=== PATIENT | male | born 1960 | race Caucasian/White ===

== ENCOUNTER 2020-02-15 15:45 | Inpatient (IN) | payer BC ==
--- NOTE | 2020-02-15 16:12 | ED ---
Chest Pain HPI - General Chief Complaint: Chest Pain Stated Complaint: 30 day heart monitor sent pt to er irregular HR Time Seen by Provider: 02/15/20 15:55 Source: patient Mode of arrival: ambulatory Limitations: no limitations - History of Present Illness Initial Comments: 59-year-old male presents emergency department or palpitations. Patient reports that he went to his primary care office approximately one month ago for similar complaint and was diagnosed with A. fib. Patient followed up in Dr. Meyer office. He has been taking metoprolol and xarelto as directed without any missed doses. He is currently wearing a Holter monitor. He was working in the yard a lot today and felt palpitations. He went up to [employer] by something when he got a call from his vice president of instruction recommending that he going to the emergency room. Patient arrives and he is in A. fib. Denies chest pain. Admits to some shortness of breath. Did not take his blood thinner yet today. Denies cough or hemoptysis. No abdominal pain. No other alleviating, precipitating or modifying factors - Related Data Home Medications Medication Instructions Recorded Confirmed Rivaroxaban [Xarelto] 20 mg PO HS 02/15/20 02/15/20 Previous Rx's Medication Instructions Recorded Pantoprazole [Protonix] 40 mg PO AC-BRKFST #30 tablet. 02/16/20 Flecainide [Tambocor] 100 mg PO Q12HR #120 tab 02/18/20 Metoprolol Succinate (ER) [Toprol 50 mg PO DAILY #30 tab.er.24h 02/18/20 XL] Allergies Allergy/AdvReac Type Severity Reaction Status Date / Time No Known Allergies Allergy Verified 02/19/20 18:52 Review of Systems ROS Statement: Those systems with pertinent positive or pertinent negative responses have been documented in the HPI. ROS Other: All systems not noted in ROS Statement are negative. EKG Findings - EKG Comments: EKG Findings:: EKG demonstrates atrial fibrillation with a rapid ventricular response. Rate of 155. QRS 68. QTC of 433. Peak T waves in V2 and V3. No acute ST segment elevations. Repeat EKG at 1818 demonstrates a normal sinus rhythm with a ventricular rate of 86. DC interval 14. QRS 70. 94. T waves in V2 and V3. No acute ST segment elevation or depression Past Medical History Past Medical History: Atrial Fibrillation History of Any Multi-Drug Resistant Organisms: None Reported Past Surgical History: No Surgical Hx Reported Past Psychological History: No Psychological Hx Reported Smoking Status: Never smoker Past Alcohol Use History: Daily Past Drug Use History: None Reported General Exam Limitations: no limitations General appearance: alert, in no apparent distress Head exam: Present: atraumatic, normocephalic, normal inspection Eye exam: Present: normal appearance, PERRL, EOMI. Absent: scleral icterus, conjunctival injection, periorbital swelling ENT exam: Present: normal exam, mucous membranes moist Neck exam: Present: normal inspection. Absent: tenderness, meningismus, lymphadenopathy Respiratory exam: Present: normal lung sounds bilaterally. Absent: respiratory distress, wheezes, rales, rhonchi, stridor Cardiovascular Exam: Present: tachycardia, irregular rhythm. Absent: systolic murmur, diastolic murmur, rubs, gallop, clicks GI/Abdominal exam: Present: soft, normal bowel sounds. Absent: distended, ten derness, guarding, rebound, rigid Extremities exam: Present: normal inspection, full ROM, normal capillary refill. Absent: tenderness, pedal edema, joint swelling, calf tenderness Back exam: Present: normal inspection Neurological exam: Present: alert, oriented X3, CN II-XII intact Psychiatric exam: Present: normal affect, normal mood Skin exam: Present: warm, dry, intact, normal color. Absent: rash Course Vital Signs 02/15/20 02/15/20 02/15/20 15:54 16:30 16:45 Temperature 97.5 F L Pulse Rate 54 L 172 H 154 H Pulse Rate [ 152 H Collating Machine Operator ] Respiratory 20 20 20 Rate Blood Pressure 156/80 134/90 136/87 O2 Sat by Pulse 97 98 98 Oximetry 02/15/20 02/15/20 17:30 18:32 Temperature 98.1 F Pulse Rate 149 H 88 Pulse Rate [ Collating Machine Operator ] Respiratory 18 17 Rate Blood Pressure 134/96 126/86 O2 Sat by Pulse 98 99 Oximetry Chest Pain MDM - MDM Upon arrival patient was placed into trauma bay 4. Thorough history and physical exam was performed. Patient is placed on continuous pulse ox and cardiac monitoring. Patient has an irregular rhythm with a rapid heart rate in the 160s. Peripheral IV is established. Laboratory studies were conducted. She was given a gram of magnesium. Laboratory studies are reviewed. Repeat evaluation the patient demonstrates no improvement in his heart rate. Patient is started on a Cardizem drip. I recommended hospital admission for which the patient did agree to. Discussed the case with Dr. Zuñiga. Cardiology consultation. Prior to the patient being transported upstairs he does have notable cardioversion to a sinus rhythm. Repeat EKG was performed. Recommended continued treatment plan for which the patient agreed to. Patient was transfe rred to floor in stable condition Critical Care Time Critical Care Time: Yes Critical Care Time: 35 minutes Disposition Clinical Impression: Atrial fibrillation with RVR Disposition: ADMITTED IP TO THIS HOSP Condition: Good Is patient prescribed a controlled substance at d/c from ED?: No Decision to Admit Reason: Admit from EC Decision Date: 02/15/20 Decision Time: 16:57
[2020-02-15] MEDS ORDERED: MAGNESIUM SULFATE-D5W PMX 1 GM in DEXTROSE/WATER 1 100ML.BAG IVPB ONE (16:20)
[2020-02-15] MEDS ORDERED: DILTIAZEM DRIP BOLUS FROM BAG 1 MG SOLN IV ONE (16:57)
[2020-02-15] MEDS ORDERED: DILTIAZEM 125 MG in SODIUM CHLORIDE 0.9% 100 ML IV SCH (17:00)
[2020-02-15 17:03] LABS: Basophils # (A) 0.2 k/uL (0-0.2); Basophils % (A) 2 %; Eosinophils # (A) 0.1 k/uL (0-0.7); Eosinophils % (A) 1 %; HCT 48.7 % (39.0-53.0); HGB 16.5 gm/dL (13.0-17.5); Lymphocytes # (A) 2.2 k/uL (1.0-4.8); Lymphocytes % (A) 17 %; MCH 30.6 pg (25.0-35.0); MCHC 33.9 g/dL (31.0-37.0); MCV 90.3 fL (80.0-100.0); Mean Platelet Volume 7.1; Monocytes % (A) 8 %; Neutrophils # (A) 9.1 k/uL (1.3-7.7); Neutrophils % (A) 71 %; Platelet Count 378 k/uL (150-450); RDW 11.8 % (11.5-15.5); WBC 12.8 k/uL (3.8-10.6)
[2020-02-15 17:13] LABS: Partial Thromboplastin Time 27.4 sec (22.0-30.0); Prothrombin Time 10.2 sec (9.0-12.0)
[2020-02-15 17:17] LABS: ALT 23 U/L (4-49); AST 25 U/L (17-59); African American GFR (CKD) >90 (>60 ml/min/1.73 sqM); Albumin 4.3 g/dL (3.5-5.0); Alkaline Phosphatase 86 U/L (38-126); Anion Gap 8 mmol/L; Blood Urea Nitrogen 25 mg/dL (9-20); Calcium 9.6 mg/dL (8.4-10.2); Carbon Dioxide 28 mmol/L (22-30); Chloride 102 mmol/L (98-107); Glucose 130 mg/dL (74-99); Magnesium 1.9 mg/dL (1.6-2.3); Non-African American GFR(CKD) >90 (>60 ml/min/1.73 sqM); Potassium 4.4 mmol/L (3.5-5.1); Sodium 138 mmol/L (137-145); Total Bilirubin 0.8 mg/dL (0.2-1.3); Total Protein 7.4 g/dL (6.3-8.2)
--- NOTE | 2020-02-15 17:27 | XR ---
EXAMINATION TYPE: XR chest 2V DATE OF EXAM: 02/15/2020 COMPARISON: NONE HISTORY: Atrial fibrillation TECHNIQUE: 2 views FINDINGS: Heart and mediastinum are normal. Lungs are clear. Diaphragm is normal. Bony thorax appears intact. The pulmonary vascularity is normal. There is mild thoracic dextroscoliosis. IMPRESSION: No active cardiopulmonary disease.
[2020-02-15] MEDS ORDERED: NALOXONE 0.4 MG/ML 1 ML VIAL IV PRN (17:45)
[2020-02-15] MEDS: RIVAROXABAN 20 MG TAB PO SCH (21:46)
[2020-02-16 07:16] LABS: Basophils # (A) 0.1 k/uL (0-0.2); Basophils % (A) 0 %; Eosinophils # (A) 0.1 k/uL (0-0.7); Eosinophils % (A) 1 %; HGB 15.3 gm/dL (13.0-17.5); Lymphocytes # (A) 1.3 k/uL (1.0-4.8); Lymphocytes % (A) 9 %; MCH 30.3 pg (25.0-35.0); MCHC 33.2 g/dL (31.0-37.0); MCV 91.1 fL (80.0-100.0); Monocytes # (A) 1.2 k/uL (0-1.0); Monocytes % (A) 8 %; Neutrophils # (A) 11.5 k/uL (1.3-7.7); Neutrophils % (A) 80 %; Platelet Count 298 k/uL (150-450); RBC 5.05 m/uL (4.30-5.90); RDW 11.7 % (11.5-15.5); WBC 14.3 k/uL (3.8-10.6)
[2020-02-16 07:27] LABS: African American GFR (CKD) >90 (>60 ml/min/1.73 sqM); Anion Gap 4 mmol/L; Blood Urea Nitrogen 22 mg/dL (9-20); Calcium 8.6 mg/dL (8.4-10.2); Carbon Dioxide 27 mmol/L (22-30); Chloride 106 mmol/L (98-107); Glucose 123 mg/dL (74-99); Non-African American GFR(CKD) >90 (>60 ml/min/1.73 sqM); Potassium 4.2 mmol/L (3.5-5.1); Sodium 137 mmol/L (137-145)
[2020-02-16] MEDS: PANTOPRAZOLE 40 MG TABLET PO SCH (09:13)
[2020-02-16] MEDS: METOPROLOL TARTRATE 50 MG TAB PO SCH ×2 (09:13→19:12)
--- NOTE | 2020-02-16 09:13 | P.CRDCN ---
History of Present Illness Consult date: 02/16/20 Chief complaint: Heart racing History of present illness: This is a pleasant 59-year-old gentleman with prior diagnosis of paroxysmal atrial fibrillation was maintaining on metoprolol tartrate 25 mg by mouth twice a day along with oral anticoagulation with Xarelto was asked to come to the emergency department because his heart was "fast and out of rhythm". The patient was in his usual state of health until yesterday when he was doing some work at home and subsequently he was doing shopping in a store when he received a phone call from his information technology internship to come to the emergency department. He was wearing a monitor showing atrial fibrillation with rapid ventricular response. In terms of symptoms he was experiencing symptoms of heart racing and fluttering but no dizziness or lightheadedness or presyncope or syncope. No symptoms of ch est pain or chest discomfort. And no shortness of breath with exertion. He stated that he was taking all his medications including the metoprolol he was prescribed before. In the emergency department the patient was found to be in atrial fibrillation with RVR and subsequently he was started on Cardizem and drip and converted to normal sinus mechanism. He has been maintaining normal sinus mechanism and Cardizem drip at 5 mg per hour. I'm going to start the patient back on metoprolol into higher dose at 50 mg by mouth twice a day and continue oral anticoagulation. If he continues to maintain normal sinus mechanism he possibly can be discharged home in the next 12-24 hours. The patient does not have any history of coronary artery disease or congestive heart failure. No prior coronary revascularization. No diabetes or hypertension. Unfortunately he drinks alcohol and he drinks about 14 drinks a week. As a matter of fact the day before yesterday he did drink excessively. He is not quite sure if he does have sleep apnea and he was not told that he does snore during the night. No thyroid disorder. The TSH was checked and came in to be unremarkable. The rest of blood work overall came in to be unremarkable. The last time he drinks alcohol was 48 hours ago when he states he drinks shanti. Past Medical History Past Medical History: Atrial Fibrillation History of Any Multi-Drug Resistant Organisms: None Reported Past Surgical History: No Surgical Hx Reported Past Psychological History: No Psychological Hx Reported Smoking Status: Never smoker Past Alcohol Use History: Daily Past Drug Use History: None Reported Medications and Allergies Home Medications Medication Instructions Recorded Confirmed Type Rivaroxaban [Xarelto] 20 mg PO HS 02/15/20 02/15/20 History Metoprolol Tartrate [Lopressor] 50 mg PO BID #0 02/16/20 02/15/20 Rx Pantoprazole [Protonix] 40 mg PO AC-BRKFST #30 tablet. 02/16/20 Rx Allergies Allergy/AdvReac Type Severity Reaction Status Date / Time No Known Allergies Allergy Verified 02/15/20 18:31 Physical Exam Vitals: Vital Signs Temp Pulse Pulse Resp BP BP Pulse Ox 02/16/20 02:30 97.8 F 85 124/81 97 02/15/20 21:47 98.8 F 85 125/85 96 02/15/20 19:20 98.8 F 85 125/85 96 02/15/20 18:32 98.1 F 88 17 126/86 99 02/15/20 17:30 149 H 18 134/96 98 02/15/20 16:45 154 H 20 136/87 98 02/15/20 16:30 172 H 152 H 20 134/90 98 02/15/20 15:54 97.5 F L 54 L 20 156/80 97 Intake and Output 02/15/20 02/16/20 02/16/20 22:59 06:59 14:59 Intake Total 150 30 Output Total 400 0 Balance -250 30 Intake: Oral 150 30 Output: Urine 400 0 Other: # Voids 2 Weight 71.668 kg - Constitutional General appearance: no acute distress - Respiratory Respiratory: bilateral: CTA - Cardiovascular Rhythm: regular Heart sounds: normal: S1, S2 Results 02/16/20 07:02 02/16/20 07:02 Cardiac Enzymes 02/15/20 02/15/20 Range/Units 16:30 16:30 AST 25 (17-59) U/L Troponin I <0.012 (0.000-0.034) ng/mL Coagulation 02/15/20 Range/Units 16:30 PT 10.2 (9.0-12.0) sec APTT 27.4 (22.0-30.0) sec CBC 02/15/20 02/16/20 Range/Units 16:30 07:02 WBC 12.8 H 14.3 H (3.8-10.6) k/uL RBC 5.40 5.05 (4.30-5.90) m/uL Hgb 16.5 15.3 (13.0-17.5) gm/dL Hct 48.7 46.0 (39.0-53.0) % Plt Count 378 298 (150-450) k/uL Comprehensive Metabolic Panel 02/15/20 02/16/20 Range/Units 16:30 07:02 Sodium 138 137 (137-145) mmol/L Potassium 4.4 4.2 (3.5-5.1) mmol/L Chloride 102 106 (98-107) mmol/L Carbon Dioxide 28 27 (22-30) mmol/L BUN 25 H 22 H (9-20) mg/dL Creatinine 0.78 0.70 (0.66-1.25) mg/dL Glucose 130 H 123 H (74-99) mg/dL Calcium 9.6 8.6 (8.4-10.2) mg/dL AST 25 (17-59) U/L ALT 23 (4-49) U/L Alkaline Phosphatase 86 (38-126) U/L Total Protein 7.4 (6.3-8.2) g/dL Albumin 4.3 (3.5-5.0) g/dL Current Medications Generic Name Dose Route Start Last Admin Trade Name Freq PRN Reason Stop Dose Admin Diltiazem HCl 125 mg/ Sodium 125 mls @ 5 mls/hr 02/15/20 17:00 02/15/20 17:43 Chloride IV 5 mg/hr .Q24H EUGENIE 5 mls/hr Administration 5 MG/HR Metoprolol Tartrate 50 mg 02/16/20 21:00 Metoprolol Tartrate 50 Mg Tab PO BID EUGENIE Naloxone HCl 0.2 mg 02/15/20 17:45 Naloxone 0.4 Mg/Ml 1 Ml Vial IV Q2M PRN Opioid Reversal Pantoprazole Sodium 40 mg 02/16/20 09:00 Pantoprazole 40 Mg Tablet PO AC-BRKFST EUGENIE Rivaroxaban 20 mg 02/15/20 21:00 02/15/20 21:46 Rivaroxaban 20 Mg Tab PO 20 mg HS EUGENIE Administration Intake and Output 02/15/20 02/16/20 02/16/20 22:59 06:59 14:59 Intake Total 150 30 Output Total 400 0 Balance -250 30 Intake: Oral 150 30 Output: Urine 400 0 Other: # Voids 2 Weight 71.668 kg 02/16/20 07:02 02/16/20 07:02 Assessment and Plan Assessment: Assessment #1 atrial fibrillation with rapid ventricular response. The patient converted to normal sinus mechanism #2 history of paroxysmal atrial fibrillation #3 excessive alcohol use #4 possible sleep apnea #5 family history of coronary artery disease Plan #1 the patient has been maintaining normal sinus mechanism #2 I would restart him back on metoprolol at a higher dose at 50 mg twice a day #3 continue oral anticoagulation for at least 4-6 weeks #4 he was counseled regarding excessive alcohol with #5 status study as an outpatient #6 watch for symptoms of alcohol withdrawal while #7 rule out severe coronary artery disease probably as an outpatient #8 follow-up with the patient Thank you for allowing us participate in his care
--- NOTE | 2020-02-16 10:52 | P.HPIM ---
History of Present Illness H&P Date: 02/16/20 History of present illness This is a pleasant 59-year-old patient of Dr. Goins who presented to the emergency room after being called by his regasification plant operator due to A. fib with RVR. Patient's past medical history includes atrial fibrillation and EtOH dependence. Approximate one month ago patient went to see his doctor for his yearly checkup and was found to be in atrial fibrillation. He was started on Zaroxolyn sent to cardiology where he underwent a stress test echo and carotid ultrasound which were all within normal limits per the patient. Patient was then given a Holter monitor. Yesterday he was doing yard work and went to [employer] he was then called by the regasification plant operator to go to the ER because his heart rate was 160. Patient did state that she felt his heart fluttering and some shortness of breath however he thought that was more related to his activity. Patient denies smoking or recreational drugs however he does drink approximately 15 or more drinks per week. Currently patient has converted to normal sinus rhythm. He is not having any complaints or concerns at this time. He can is anxious to go home Review Of Systems: Constitutional: No fever, no chills, no night sweats. No weight change. No weakness, fatigue or lethargy. No daytime sleepiness. EENT: No headache. No blurred vision or double vision, no loss of vision. No loss of Hearing, no ringing in the ears, no dizziness. No nasal drainage or congestion. No epistaxis. No sore throat. Lungs: No shortness of breath, cough, no sputum production. No wheezing. Cardiovascular: No chest pain, no lower extremity edema. Reports palpitations resolved. No paroxysmal nocturnal dyspnea. No orthopnea. No lightheadedness or dizziness. No syncopal episodes. Abdominal: no abdominal discomfort. No nausea, vomiting. no diarrhea. No constipation. No bloody or tarry stools. no loss of appetite. Genitourinary: No dysuria, increased frequency, urgency. No urinary retention. Musculoskeletal: No myalgias. No muscle weakness, no gait dysfunction, no frequent falls. No back pain. No neck pain. Integumentary: No wounds, no lesions. No rash or pruritus. No unusual bruising. No change in hair or nails. Neurologic: No aphasia. No facial droop. No change in mentation. No head injury. No headache. No paralysis. No paresthesia. Psychiatric: No depression. No anxiety. No mood swings. Endocrine: No abnormal blood sugars. No weight change. No excessive sweating or thirst. Social history: EtOH consumption 15+ drinks per week, denies smoking denies recreational drugs including marijuana. Patient currently works as a distributor for snack foods. Family history: Patient is single with one daughter who is healthy, 4 brothers one from CAD 1 living with CAD, 2 other brothers are healthy. Mom at 36 due to EtOH, dad of obesity and EtOH at 56. Physical examination General Appearance: Alert, cooperative, no distress, appears stated age. Neck HEENT: Supple, no lymphadenopathy, no thyroid enlargement, no carotid bruits. Lungs: Clear to auscultation without crackles or wheezes no rhonchi, no deformity. Chest Wall: Chest wall normal expansion with deep inspiration no tenderness and no deformity was found on exam, no costochondral pain or discomfort. Heart: Regular rate and rhythm, S1, S2 normal, no murmur, rub or gallop. Back: Symmetric, no curvature, ROM normal, no CVA tenderness. Abdomen: Soft, non-tender, no rebound or rigidity, no hepatosplenomegaly. Extremities: Extremities normal, atraumatic, no cyanosis or edema. Pulses: 2+ and symmetric. Skin: Skin color, texture, tugor normal, no rashes or lesions. Neurologic: Alert oriented x3 cranial nerves II through XII intact, no motor deficit, no abnormal balance or gait Assessment and plan 1. Atrial fibrillation with RVR. Cardizem drip is DC'd. Metoprolol increased to 50 mg twice a day. Continue xarelto. Consult for cardiology. 2. Palpitations. As noted above 3. EtOH dependence, discussed with patient's EtOH consumption on heart muscle. 4. GI prophylaxis. Protonix 40 mg daily 5. DVT prophylaxis. xarelto Discharge plan: Discharge home today. Impression and plan of care have been directed as dictated by the signing physician. Danay Yap nurse practitioner acting as scribe for signing physician. Past Medical History Past Medical History: Atrial Fibrillation History of Any Multi-Drug Resistant Organisms: None Reported Past Surgical History: No Surgical Hx Reported Past Psychological History: No Psychological Hx Reported Smoking Status: Never smoker Past Alcohol Use History: Daily Past Drug Use History: None Reported Medications and Allergies Home Medications Medication Instructions Recorded Confirmed Type Rivaroxaban [Xarelto] 20 mg PO HS 02/15/20 02/15/20 History Metoprolol Tartrate [Lopressor] 50 mg PO BID #0 02/16/20 02/15/20 Rx Pantoprazole [Protonix] 40 mg PO RILEY-BRKFST #30 tablet. 02/16/20 Rx Allergies Allergy/AdvReac Type Severity Reaction Status Date / Time No Known Allergies Allergy Verified 02/15/20 18:31 Physical Exam Vitals: Vital Signs Temp Pulse Pulse Pulse Resp BP BP 02/16/20 09:00 80 14 02/16/20 08:39 98.0 F 80 14 117/69 02/16/20 02:30 97.8 F 85 124/81 02/15/20 21:47 98.8 F 85 125/85 02/15/20 19:20 98.8 F 85 125/85 02/15/20 18:32 98.1 F 88 17 126/86 02/15/20 17:30 149 H 18 134/96 02/15/20 16:45 154 H 20 136/87 02/15/20 16:30 172 H 152 H 20 134/90 02/15/20 15:54 97.5 F L 54 L 20 156/80 Pulse Ox 02/16/20 09:00 02/16/20 08:39 96 02/16/20 02:30 97 02/15/20 21:47 96 02/15/20 19:20 96 02/15/20 18:32 99 02/15/20 17:30 98 02/15/20 16:45 98 02/15/20 16:30 98 02/15/20 15:54 97 Intake and Output 02/15/20 02/16/20 02/16/20 22:59 06:59 14:59 Intake Total 150 30 300 Output Total 400 0 Balance -250 30 300 Intake: Oral 150 30 300 Output: Urine 400 0 Other: Voiding Method Toilet # Voids 2 Weight 71.668 kg Results CBC & Chem 7: 02/16/20 07:02 02/16/20 07:02 Labs: Abnormal Lab Results - Last 24 Hours (Table) 02/15/20 02/15/20 02/16/20 Range/Units 16:30 16:30 07:02 WBC 12.8 H 14.3 H (3.8-10.6) k/uL Neutrophils # 9.1 H 11.5 H (1.3-7.7) k/uL Monocytes # 1.2 H (0-1.0) k/uL BUN 25 H (9-20) mg/dL Glucose 130 H (74-99) mg/dL 02/16/20 Range/Units 07:02 WBC (3.8-10.6) k/uL Neutrophils # (1.3-7.7) k/uL Monocytes # (0-1.0) k/uL BUN 22 H (9-20) mg/dL Glucose 123 H (74-99) mg/dL Thrombosis Risk Factor Assmnt - Choose All That Apply Each Factor Represents 1 point: Age 41-60 years Thrombosis Risk Factor Assessment Total Risk Factor Score: 1 Thrombosis Risk Factor Assessment Level: Low Risk
--- NOTE | 2020-02-16 10:54 | P.DS ---
Providers Date of admission: 02/15/20 17:45 Attending physician: Darian Zuñiga Consults: 02/15/20 17:45 Consult Physician Urgent Consulting Provider: [facility] Consult Reason/Comments: afib with rvr Do you want consulting provider notified?: Yes Primary care physician: Shamir Goins [facility] Course: History of present illness This is a pleasant 59-year-old patient of Dr. Goins who presented to the emergency room after being called by his garnetter due to A. fib with RVR. Patient's past medical history includes atrial fibrillation and EtOH dependence. Approximate one month ago patient went to see his doctor for his yearly checkup and was found to be in atrial fibrillation. He was started on Zaroxolyn sent to cardiology where he underwent a stress test echo and carotid ultrasound which were all within normal limits per the patient. Patient was then given a Holter monitor. Yesterday he was doing yard work and went to [employer] he was then called by the garnetter to go to the ER because his heart rate was 160. Patient did state that she felt his heart fluttering and some shortness of breath however he thought that was more related to his activity. Patient denies smoking or recreational drugs however he does drink approximately 15 or more drinks per week. Currently patient has converted to normal sinus rhythm. He is not having any complaints or concerns at this time. He can is anxious to go home Discharge diagnoses: 1. Atrial fibrillation with RVR. 2. Palpitations. 3. EtOH dependence, Discharge disposition: Home with self-care Impression and plan of care have been directed as dictated by the signing physician. Danay Yap nurse practitioner acting as scribe for signing physician. Patient Condition at Discharge: Serious Plan - Discharge Summary New Discharge Prescriptions: New Pantoprazole [Protonix] 40 mg PO AC-BRKFST #30 tablet. Continue Rivaroxaban [Xarelto] 20 mg PO HS Changed Metoprolol Tartrate [Lopressor] 50 mg PO BID #0 Discharge Medication List Rivaroxaban [Xarelto] 20 mg PO HS 02/15/20 [History] Metoprolol Tartrate [Lopressor] 50 mg PO BID #0 02/16/20 [Rx] Pantoprazole [Protonix] 40 mg PO AC-BRKFST #30 tablet. 02/16/20 [Rx] Follow up Appointment(s)/Referral(s): Monico Beard MD [STAFF PHYSICIAN] - 1 Week Shamir Goins DO [Primary Care Provider] - 1-2 days
[2020-02-16] MEDS ORDERED: METOPROLOL TARTRATE 50 MG TAB PO SCH (21:00)
[2020-02-16] MEDS: RIVAROXABAN 20 MG TAB PO SCH (21:16)
[2020-02-17] MEDS: PANTOPRAZOLE 40 MG TABLET PO SCH (06:52)
[2020-02-17] MEDS: FLECAINIDE 50 MG TAB PO SCH ×2 (08:51→21:45)
[2020-02-17] MEDS: METOPROLOL SUCCINATE (ER) 50 MG TAB.ER.24H PO SCH (08:51)
[2020-02-17] MEDS ORDERED: METOPROLOL SUCCINATE (ER) 50 MG TAB.ER.24H PO SCH (09:00)
--- NOTE | 2020-02-17 09:40 | P.PN ---
Subjective This is a pleasant 59-year-old male past medical history significant for paroxysmal atrial fibrillation and daily alcohol intake. He follows with Dr. Christy for cardiology. He was sent to the hospital secondary to a-fib with RVR noted on an outpatient event monitor he was wearing. He did spontaneously convert back to sinus mechanism while on cardizem infusion yesterday. He continues to maintain NSR. He is seen and examined sitting up in the chair in no acute distress. He denies chest pain, shortness of breath, dizziness or palpitat ions. He states he underwent a stress test and echocardiogram 2- weeks ago at [facility] and was told both tests were normal. Blood pressure 108/73 heart rate 83 afebrile maintaining oxygen saturation on room air. GENERAL: Well-appearing, well-nourished and in no acute distress. NECK: Supple without JVD or thyromegaly. LUNGS: Breath sounds clear to auscultation bilaterally. Respiration equal and unlabored. No wheezes, rales or rhonchi. HEART: Regular rate and rhythm without murmurs, rubs or gallops. S1 and S2 heard. EXTREMITIES: Normal range of motion, no edema. No clubbing or cyanosis. Peripheral pulses intact. ASSESSMENT Atrial fibrillation with rapid ventricular rate, paroxysmal. Currently maintaining sinus mechanism. Leukocytosis Alcohol abuse PLAN Patient continues to maintain sinus mechanism. We recommend initiating flecainide 100 mg twice a day along with continuing Toprol 50 mg daily and Xarelto 20 mg daily. We discussed in great detail with the patient that we would like to monitor for an additional 24 hours given initiation of flecainide. He is in agreement of this plan. We will also get the records of his recent cardiac testing for review. Ongoing telemetry monitoring. Further recommendations to follow based upon clinical course. Nurse Practitioner note has been reviewed, I agree with a documented findings and plan of care. Patient was seen and examined. Objective - Vital Signs Vital signs: Vital Signs Temp 98.2 F 02/17/20 07:58 Pulse 83 02/17/20 07:58 Resp 16 02/17/20 07:58 BP 108/73 02/17/20 07:58 Pulse Ox 97 02/17/20 07:58 Intake & Output 02/16/20 02/17/20 02/17/20 18:59 06:59 18:59 Intake Total 800 700 Balance 800 700 Intake: Oral 800 700 Other: Voiding Method Toilet Toilet # Voids 2 1 - Labs CBC & Chem 7: 02/16/20 07:02 02/16/20 07:02
--- NOTE | 2020-02-17 13:31 | P.PN ---
Subjective Progress Note Date: 02/16/20 (Y) History of present illness This is a pleasant 59-year-old patient of Dr. Goins who presented to the emergency room after being called by his bulk pallet builder due to A. fib with RVR. Patient's past medical history includes atrial fibrillation and EtOH dependence. Approximate one month ago patient went to see his doctor for his yearly checkup and was found to be in atrial fibrillation. He was started on Zaroxolyn sent to cardiology where he underwent a stress test echo and carotid ultrasound which were all within normal limits per the patient. Patient was then given a Holter monitor. Yesterday he was doing yard work and went to [employer] he was then called by the bulk pallet builder to go to the ER because his heart rate was 160. Patient did state that she felt his heart fluttering and some shortness of breath however he thought that was more related to his activity. Patient denies smoking or recreational drugs however he does drink approximately 15 or more drinks per week. Currently patient has converted to normal sinus rhythm. He is not having any complaints or concerns at this time. He can is anxious to go home Patient was scheduled for discharge home yesterday once cleared by cardiology but Dr. Beard wanted to monitor overnight. Review Of Systems: Constitutional: No fever, no chills, no night sweats. No weight change. No weakness, fatigue or lethargy. No daytime sleepiness. EENT: No headache. No blurred vision or double vision, no loss of vision. No loss of Hearing, no ringing in the ears, no dizziness. No nasal drainage or congestion. No epistaxis. No sore throat. Lungs: No shortness of breath, cough, no sputum production. No wheezing. Cardiovascular: No chest pain, no lower extremity edema. Reports palpitations resolved. No paroxysmal nocturnal dyspnea. No orthopnea. No lightheadedness or dizziness. No syncopal episodes. Abdominal: no abdominal discomfort. No nausea, vomiting. no diarrhea. No constipation. No bloody or tarry stools. no loss of appetite. Genitourinary: No dysuria, increased frequency, urgency. No urinary retention. Musculoskeletal: No myalgias. No muscle weakness, no gait dysfunction, no frequent falls. No back pain. No neck pain. Integumentary: No wounds, no lesions. No rash or pruritus. No unusual bruising. No change in hair or nails. Neurologic: No aphasia. No facial droop. No change in mentation. No head injury. No headache. No paralysis. No paresthesia. Psychiatric: No depression. No anxiety. No mood swings. Endocrine: No abnormal blood sugars. No weight change. No excessive sweating or thirst. Physical examination General Appearance: Alert, cooperative, no distress, appears stated age. Neck HEENT: Supple, no lymphadenopathy, no thyroid enlargement, no carotid bruits. Lungs: Clear to auscultation without crackles or wheezes no rhonchi, no deformity. Chest Wall: Chest wall normal expansion with deep inspiration no tenderness and no deformity was found on exam, no costochondral pain or discomfort. Heart: Regular rate and rhythm, S1, S2 normal, no murmur, rub or gallop. Back: Symmetric, no curvature, ROM normal, no CVA tenderness. Abdomen: Soft, non-tender, no rebound or rigidity, no hepatosplenomegaly. Extremities: Extremities normal, atraumatic, no cyanosis or edema. Pulses: 2+ and symmetric. Skin: Skin color, texture, tugor normal, no rashes or lesions. Neurologic: Alert oriented x3 cranial nerves II through XII intact, no motor deficit, no abnormal balance or gait Assessment and plan 1. Atrial fibrillation with RVR. Cardizem drip is DC'd. Metoprolol increased to 50 mg twice a day. Continue xarelto. Consult for cardiology. 2. Palpitations. As noted above 3. EtOH dependence, discussed with patient's EtOH consumption on heart muscle. 4. GI prophylaxis. Protonix 40 mg daily 5. DVT prophylaxis. xarelto Discharge plan:home Impression and plan of care have been directed as dictated by the signing physician. Pattie Wood nurse practitioner acting as scribe for signing physician. Objective - Vital Signs Vital signs: Vital Signs Temp 97.7 F 02/17/20 02:25 Pulse 62 02/17/20 02:25 Resp 16 02/16/20 14:43 BP 104/66 02/17/20 02:25 Pulse Ox 96 02/17/20 02:25 Intake & Output 02/16/20 02/17/20 02/17/20 18:59 06:59 18:59 Intake Total 800 700 Balance 800 700 Intake: Oral 800 700 Other: Voiding Method Toilet Toilet # Voids 2 1 - Labs CBC & Chem 7: 02/16/20 07:02 02/16/20 07:02
--- NOTE | 2020-02-17 13:35 | P.PN ---
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 fib with RVR. Patient's past medical history includes atrial fibrillation and EtOH dependence. Approximate one month ago patient went to see his doctor for his yearly checkup and was found to be in atrial fibrillation. He was started on Zaroxolyn sent to cardiology where he underwent a stress test echo and carotid ultrasound which w ere all within normal limits per the patient. Patient was then given a Holter monitor. Yesterday he was doing yard work and went to [employer] he was then called by the claims consultant to go to the ER because his heart rate was 160. Patient did state that she felt his heart fluttering and some shortness of breath however he thought that was more related to his activity. Patient denies smoking or recreational drugs however he does drink approximately 15 or more drinks per week. Currently patient has converted to normal sinus rhythm. He is not having any complaints or concerns at this time. He can is anxious to go home Patient was scheduled for discharge home once cleared by cardiology but Dr. Beard wanted to monitor overnight. 02/16: Dr. Beard requested that the patient be held overnight. Patient states that last evening when he thought his metoprolol was wearing off. Was feeling palpitations of his heart rate increased. Patient has been seen by Dr. Quinones this morning and flecainide has been added to his medications and he will be monitored overnight. Also changed Lopressor to metoprolol XL 50 mg daily. Patient has been afebrile, heart rate 83, blood pressure 108/73, pulse ox 97% on room air. Review Of Systems: Constitutional: No fever, no chills, no night sweats. No weight change. No weakness, fatigue or lethargy. No daytime sleepiness. EENT: No headache. No blurred vision or double vision, no loss of vision. No loss of Hearing, no ringing in the ears, no dizziness. No nasal drainage or congestion. No epistaxis. No sore throat. Lungs: No shortness of breath, cough, no sputum production. No wheezing. Cardiovascular: No chest pain, no lower extremity edema. Reports palpitations episode last evening. No paroxysmal nocturnal dyspnea. No orthopnea. No l ightheadedness or dizziness. No syncopal episodes. Abdominal: no abdominal discomfort. No nausea, vomiting. no diarrhea. No constipation. No bloody or tarry stools. no loss of appetite. Genitourinary: No dysuria, increased frequency, urgency. No urinary retention. Musculoskeletal: No myalgias. No muscle weakness, no gait dysfunction, no frequent falls. No back pain. No neck pain. Integumentary: No wounds, no lesions. No rash or pruritus. No unusual bruising. No change in hair or nails. Neurologic: No aphasia. No facial droop. No change in mentation. No head injury. No headache. No paralysis. No paresthesia. Psychiatric: No depression. No anxiety. No mood swings. Endocrine: No abnormal blood sugars. No weight change. No excessive sweating or thirst. Physical examination General Appearance: This is a 59-year-old male. He is sitting up in a chair and appears to be in no acute distress. Alert, cooperative, no distress, appears stated age. Neck HEENT: Supple, no lymphadenopathy, no thyroid enlargement, no carotid bruits. Lungs: Clear to auscultation without crackles or wheezes no rhonchi, no deformity. Chest Wall: Chest wall normal expansion with deep inspiration no tenderness and no deformity was found on exam, no costochondral pain or discomfort. Heart: Regular rate and rhythm, S1, S2 normal, no murmur, rub or gallop. Back: Symmetric, no curvature, ROM normal, no CVA tenderness. Abdomen: Soft, non-tender, no rebound or rigidity, no hepatosplenomegaly. Extremities: Extremities normal, atraumatic, no cyanosis or edema. Pulses: 2+ and symmetric. Skin: Skin color, texture, tugor normal, no rashes or lesions. Neurologic: Alert oriented x3 cranial nerves II through XII intact, no motor deficit, no abnormal balance or gait Assessment and plan 1. Atrial fibrillation with RVR, paroxysmal atrial fibrillation. Currently in sinus rhythm. Cardizem drip is DC'd. Metoprolol XL 50 mg daily, flecainide added today. Continue xarelto. Consult for cardiology appreciated. 2. Palpitations. As noted above 3. EtOH dependence, discussed with patient's EtOH consumption on heart muscle. 4. GI prophylaxis. Protonix 40 mg daily 5. DVT prophylaxis. xarelto Discharge plan:home Impression and plan of care have been directed as dictated by the signing physician. Pattie Wood nurse practitioner acting as scribe for signing physician. Objective - Vital Signs Vital signs: Vital Signs Temp 98.2 F 02/17/20 07:58 Pulse 83 02/17/20 07:58 Resp 16 02/17/20 09:00 BP 108/73 02/17/20 07:58 Pulse Ox 97 02/17/20 07:58 Intake & Output 02/16/20 02/17/20 02/17/20 18:59 06:59 18:59 Intake Total 800 700 200 Balance 800 700 200 Intake: Oral 800 700 200 Other: Voiding Method Toilet Toilet Toilet # Voids 2 1 - Labs CBC & Chem 7: 02/16/20 07:02 02/16/20 07:02
[2020-02-17] MEDS: RIVAROXABAN 20 MG TAB PO SCH (21:45)
[2020-02-18] MEDS: PANTOPRAZOLE 40 MG TABLET PO SCH (06:39)
--- NOTE | 2020-02-18 08:27 | P.DS ---
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 fib with RVR. Patient's past medical history includes atrial fibrillation and EtOH dependence. Approximate one month ago patient went to see his doctor for his yearly checkup and was found to be in atrial fibrillation. He was started on Zaroxolyn sent to cardiology where he underwent a stress test echo and carotid ultrasound which were all within normal limits per the patient. Patient was then given a Holter monitor. Yesterday he was doing yard work and went to [employer] he was then called by the architectural project manager to go to the ER because his heart rate was 160. Patient did state that she felt his heart fluttering and some shortness of breath however he thought that was more related to his activity. Patient denies smoking or recreational drugs however he does drink approximately 15 or more drinks per week. Currently patient has converted to normal sinus rhythm. He is not having any complaints or concerns at this time. He can is anxious to go home Patient was scheduled for discharge home once cleared by cardiology but Dr. Beard wanted to monitor overnight. 02/16: Dr. Beard requested that the patient be held overnight. Patient states that last evening when he thought his metoprolol was wearing off. Was feeling palpitations of his heart rate increased. Patient has been seen by Dr. Quinones this morning and flecainide has been added to his medications and he will be monitored overnight. Also changed Lopressor to metoprolol XL 50 mg daily. Patient has been afebrile, heart rate 83, blood pressure 108/73, pulse ox 97% on room air. 02/17: Patient remains in sinus rhythm and denies any issues over night. He has been cleared for discharge by cardiology. HR 50s, BP 122/82, PO 95% on RA. Patient will be discharged home today in stable condition. Discharge diagnoses: 1. Atrial fibrillation with RVR, paroxysmal atrial fibrillation. Currently in sinus rhythm. 2. Palpitations. 3. EtOH dependence, discussed with patient's EtOH consumption on heart muscle. Discharge plan:home Impression and plan of care have been directed as dictated by the signing physician. Pattie Wood nurse practitioner acting as scribe for signing physician. Patient Condition at Discharge: Good Plan - Discharge Summary New Discharge Prescriptions: New Pantoprazole [Protonix] 40 mg PO AC-BRKFST #30 tablet. Flecainide [Tambocor] 100 mg PO Q12HR #120 tab Metoprolol Succinate (ER) [Toprol XL] 50 mg PO DAILY #30 tab.er.24h Continue Rivaroxaban [Xarelto] 20 mg PO HS Discontinued Metoprolol Tartrate [Lopressor] 25 mg PO BID Discharge Medication List Rivaroxaban [Xarelto] 20 mg PO HS 02/15/20 [History] Pantoprazole [Protonix] 40 mg PO AC-BRKFST #30 tablet. 02/16/20 [Rx] Flecainide [Tambocor] 100 mg PO Q12HR #120 tab 02/18/20 [Rx] Metoprolol Succinate (ER) [Toprol XL] 50 mg PO DAILY #30 tab.er.24h 02/18/20 [Rx] Follow up Appointment(s)/Referral(s): Monico Beard MD [STAFF PHYSICIAN] - 1 Week (The office will call you with appointment date and time) Shamir Goins DO [Primary Care Provider] - 1 Week Discharge Disposition: HOME SELF-CARE
[2020-02-18 08:49] VITALS: BP 122/82; PULSE 96; RESP 16; TEMP 98.2
[2020-02-18] MEDS: FLECAINIDE 50 MG TAB PO SCH (08:53)
[2020-02-18] MEDS: METOPROLOL SUCCINATE (ER) 50 MG TAB.ER.24H PO SCH (08:53)
--- NOTE | 2020-02-18 11:25 | P.PN ---
Subjective Progress Note Date: 02/18/20 This is a 59-year-old gentleman with history of EtOH use, patient states that he drank at least 14 alcoholic beverages per week, patient was recently diagnosed with atrial fibrillation, he was wearing an event monitor and was instructed to come to the hospital. Patient had been initiated on Xarelto, he presented to the hospital on this admission with symptoms of heart racing. He was found to be in atrial fibrillation with a rapid ventricular response. Patient also recently underwent an echocardiogram with Doppler study and a Lexiscan stress test at [facility] [place]. I did review those this morning, the Imani scan was negative for any reversible ischemia. The patient was seen in consultation yesterday, and initiated on flecainide, he remains this morning in a normal sinus rhythm. He denies any palpitations, no chest discomfort, no breathing difficulty. Blood pressure 122/80, heart rate in the 60s this morning. 95% on room air. White blood cell count 14.3, hemoglobin 15.3, platelet count 298. Sodium 137, potassium 4.2, BUN 22, creatinine 0.7. Objective - Vital Signs Vital signs: Vital Signs Temp 98.2 F 02/18/20 08:49 Pulse 96 02/18/20 08:49 Resp 16 02/18/20 08:49 BP 122/82 02/18/20 08:49 Pulse Ox 95 02/18/20 08:49 Intake & Output 02/17/20 02/18/20 02/18/20 18:59 06:59 18:59 Intake Total 200 200 Balance 200 200 Intake: Oral 200 200 Other: Voiding Method Toilet Toilet # Voids 1 1 - Exam PHYSICAL EXAMINATION: GENERAL: 89-year-old gentleman in no acute distress at the time of my examination HEENT: Head is atraumatic, normocephalic. Pupils equal, round. Sclera anicteric. Conjunctiva are clear. Mucous membranes of the mouth are moist. Neck is supple. There is no elevated jugular venous pressure. No carotid bruit is heard. HEART EXAMINATION: Heart S1, S2 normal. No murmur or gallop heard. CHEST EXAMINATION: Lungs are clear to auscultation and precussion. No chest wall tenderness is noted on palpation or with deep breathing. ABDOMEN: Soft, nontender. Bowel sounds are heard. No organomegaly noted. EXTREMITIES: 2+ peripheral pulses with no evidence of peripheral edema and no calf tenderness noted. NEUROLOGIC patient is awake, alert and oriented 3 . - Labs CBC & Chem 7: 02/16/20 07:02 02/16/20 07:02 Assessment and Plan Plan: Assessment and plan #1 atrial fibrillation with rapid ventricular response, paroxysmal, remaining in normal sinus rhythm on flecainide and beta alin #2 alcohol abuse Plan From cardiology's perspective, patient may be able to be discharged home today. He wishes to follow-up in our office, we'll make an appointment for him to see Dr. Dudley in the office. Patient has been encouraged strongly regarding EtOH cessation which he states he will try to stop drinking. He is also on anticoagulation in the form of Xarelto, he will continue the flecainide and beta alin. DNP note has been reviewed, I agree with a documented findings and plan of care. Patient was seen and examined.
== END 2020-02-18 09:43 | disposition home or self-care (01) | DRG 310 ==
LOC: EC 15:45 → 3NCARDOBS 17:45 → OBSVTOIN 02-17 12:37
PROVIDERS: ADMIT Internal Medicine Geriatric Medicine; ATTEND Internal Medicine Geriatric Medicine
DX: I48.0 Paroxysmal atrial fibrillation (principal); F10.20 Alcohol dependence, uncomplicated; D72.829 Elevated white blood cell count, unspecified; Z79.01 Long term (current) use of anticoagulants; Z79.899 Other long term (current) drug therapy; Z82.49 Family history of ischemic heart disease and other diseases of the circulatory system
CPT/HCPCS: 36415; 71046; 80048; 80053; 83735; 83880; 84443; 84484; 85025; 85610; 85730; 93005; 96365; 96366; 96367; 96368; 96376; 99291

== ENCOUNTER 2020-02-19 18:27 | Emergency (ER) | payer BC ==
[2020-02-19] MEDS ORDERED: SODIUM CHLORIDE 0.9% 500 ML 500 ML IV STA (19:16)
[2020-02-19] MEDS ORDERED: LABETALOL 5 MG/ML VIAL MDV IVP STA (19:18)
[2020-02-19 19:30] LABS: Basophils # (A) 0.1 k/uL (0-0.2); Basophils % (A) 1 %; Eosinophils # (A) 0.2 k/uL (0-0.7); Eosinophils % (A) 2 %; HCT 47.8 % (39.0-53.0); HGB 16.3 gm/dL (13.0-17.5); Lymphocytes # (A) 1.7 k/uL (1.0-4.8); Lymphocytes % (A) 18 %; MCH 30.3 pg (25.0-35.0); MCV 88.9 fL (80.0-100.0); Mean Platelet Volume 7.6; Monocytes # (A) 0.6 k/uL (0-1.0); Monocytes % (A) 6 %; Neutrophils % (A) 72 %; Platelet Count 320 k/uL (150-450); RBC 5.38 m/uL (4.30-5.90); WBC 9.7 k/uL (3.8-10.6)
[2020-02-19 19:38] LABS: ALT 23 U/L (4-49); AST 35 U/L (17-59); African American GFR (CKD) >90 (>60 ml/min/1.73 sqM); Albumin 4.3 g/dL (3.5-5.0); Alkaline Phosphatase 81 U/L (38-126); Anion Gap 10 mmol/L; Blood Urea Nitrogen 19 mg/dL (9-20); Calcium 9.1 mg/dL (8.4-10.2); Carbon Dioxide 21 mmol/L (22-30); Chloride 104 mmol/L (98-107); Glucose 128 mg/dL (74-99); Magnesium 1.8 mg/dL (1.6-2.3); Non-African American GFR(CKD) >90 (>60 ml/min/1.73 sqM); Potassium 4.4 mmol/L (3.5-5.1); Sodium 135 mmol/L (137-145); Total Bilirubin 0.7 mg/dL (0.2-1.3); Total Protein 7.8 g/dL (6.3-8.2)
[2020-02-19 19:44] LABS: Partial Thromboplastin Time 19.9 sec (22.0-30.0)
--- NOTE | 2020-02-19 19:57 | ED ---
General Adult HPI - General Stated complaint: heart concerns-revisit Time Seen by Provider: 02/19/20 18:50 Source: patient, RN notes reviewed, old records reviewed Mode of arrival: ambulatory Limitations: no limitations - History of Present Illness Initial comments: this a 59-year-old male presents emergency department after having been discharged from the hospital yesterday. Patient was diagnosed with atrial fibrillation started on metoprolol Xarelto and flecainide. Patient states today he didn't feel good and his blood pressure was high 190/115. Patient states he has no fever denies any cough. Patient denies any chest pain denies feeling any palpitations. Patient denies shortness of breath or difficulty breathing. Patient denies any swelling to her legs or calf tenderness. Patient denies abdominal pain patient denies nausea vomiting diarrhea. - Related Data Home Medications Medication Instructions Recorded Confirmed Rivaroxaban [Xarelto] 20 mg PO HS 02/15/20 02/15/20 Previous Rx's Medication Instructions Recorded Pantoprazole [Protonix] 40 mg PO AC-BRKFST #30 tablet. 02/16/20 Flecainide [Tambocor] 100 mg PO Q12HR #120 tab 02/18/20 Metoprolol Succinate (ER) [Toprol 50 mg PO DAILY #30 tab.er.24h 02/18/20 XL] Allergies Allergy/AdvReac Type Severity Reaction Status Date / Time No Known Allergies Allergy Verified 02/19/20 18:52 Review of Systems ROS Statement: Those systems with pertinent positive or pertinent negative responses have been documented in the HPI. ROS Other: All systems not noted in ROS Statement are negative. Past Medical History Past Medical History: Atrial Fibrillation History of Any Multi-Drug Resistant Organisms: None Reported Past Surgical History: No Surgical Hx Reported Past Psychological History: No Psychological Hx Reported Smoking Status: Never smoker Past Alcohol Use History: Daily Past Drug Use History: None Reported General Exam - General Exam Comments Initial Comments: GENERAL: Patient is well-developed and well-nourished. Patient is nontoxic and well- hydrated and is in no acute distress. ENT: Neck is soft and supple. No significant lymphadenopathy is noted. Oropharynx is clear. Moist mucous membranes. Neck has full range of motion without eliciting any pain. There is no thyroid enlargement and no masses were felt. EYES: The sclera were anicteric and conjunctiva were pink and moist. Extraocular movements were intact and pupils were equal round and reactive to light. Eyelids were unremarkable. PULMONARY: Unlabored respirations. Good breath sounds bilaterally. No audible rales rhonchi or wheezing was noted. CARDIOVASCULAR: There is a regular rate and rhythm without any murmurs gallops or rubs. Femoral pulses are equal bilaterally ABDOMEN: Soft and nontender with normal bowel sounds. No palpable organomegaly was noted. There is no palpable pulsatile mass. SKIN: Skin is clear with no lesions or rashes and otherwise unremarkable. NEUROLOGIC: Patient is alert and oriented x3. Cranial nerves II through XII are grossly intact. Motor and sensory are also intact. Normal speech, volume and content. Symmetrical smile. Cerebellar exam grossly intact. MUSCULOSKELETAL: Normal extremities with adequate strength and full range of motion. No lower extremity swelling or edema. No calf tenderness. LYMPHATICS: No significant lymphadenopathy is noted PSYCHIATRIC: Normal psychiatric evaluation. Normal interpersonal interactions appears functionally intact in deals appropriately with others. No signs of depression. No signs of anxiety. No delusions. No hallucinations. Limitations: no limitations Course Vital Signs 02/19/20 02/19/20 02/19/20 18:47 19:12 19:30 Temperature 98 F Pulse Rate 91 85 76 Respiratory 16 18 18 Rate Blood Pressure 158/100 170/98 132/98 O2 Sat by Pulse 98 98 97 Oximetry 02/19/20 20:12 Temperature 98.2 F Pulse Rate 66 Respiratory 20 Rate Blood Pressure 142/78 O2 Sat by Pulse 99 Oximetry Medical Decision Making - Medical Decision Making EKG shows normal sinus rhythm at 83 bpm NJ interval 236 QRS is 76 QT interval 348 QTC is 408. Patient's EKG shows no ST segment elevation or depression. I spoke with Dr. Henriquez about the recent prescription of flecainide and was concerned if there was any possibility of V. tach he thought thatchances were pretty low that the flecainide was causing this gentleman problems - Lab Data Result diagrams: 02/19/20 19:21 02/19/20 19:21 Lab Results 02/19/20 02/19/20 02/19/20 Range/Units 19:21 19:21 19:21 WBC 9.7 (3.8-10.6) k/uL RBC 5.38 (4.30-5.90) m/uL Hgb 16.3 (13.0-17.5) gm/dL Hct 47.8 (39.0-53.0) % MCV 88.9 (80.0-100.0) fL MCH 30.3 (25.0-35.0) pg MCHC 34.0 (31.0-37.0) g/dL RDW 12.0 (11.5-15.5) % Plt Count 320 (150-450) k/uL MPV 7.6 Neutrophils % 72 % Lymphocytes % 18 % Monocytes % 6 % Eosinophils % 2 % Basophils % 1 % Neutrophils # 7.0 (1.3-7.7) k/uL Lymphocytes # 1.7 (1.0-4.8) k/uL Monocytes # 0.6 (0-1.0) k/uL Eosinophils # 0.2 (0-0.7) k/uL Basophils # 0.1 (0-0.2) k/uL PT 10.0 (9.0-12.0) sec INR 1.0 (<1.2) APTT 19.9 L (22.0-30.0) sec Sodium 135 L (137-145) mmol/L Potassium 4.4 (3.5-5.1) mmol/L Chloride 104 (98-107) mmol/L Carbon Dioxide 21 L (22-30) mmol/L Anion Gap 10 mmol/L BUN 19 (9-20) mg/dL Creatinine 0.68 (0.66-1.25) mg/dL Est GFR (CKD-EPI)AfAm >90 (>60 ml/min/1.73 sqM) Est GFR (CKD-EPI)NonAf >90 (>60 ml/min/1.73 sqM) Glucose 128 H (74-99) mg/dL Calcium 9.1 (8.4-10.2) mg/dL Magnesium 1.8 (1.6-2.3) mg/dL Total Bilirubin 0.7 (0.2-1.3) mg/dL AST 35 (17-59) U/L ALT 23 (4-49) U/L Alkaline Phosphatase 81 (38-126) U/L Troponin I (0.000-0.034) ng/mL Total Protein 7.8 (6.3-8.2) g/dL Albumin 4.3 (3.5-5.0) g/dL 02/19/20 Range/Units 19:21 WBC (3.8-10.6) k/uL RBC (4.30-5.90) m/uL Hgb (13.0-17.5) gm/dL Hct (39.0-53.0) % MCV (80.0-100.0) fL MCH (25.0-35.0) pg MCHC (31.0-37.0) g/dL RDW (11.5-15.5) % Plt Count (150-450) k/uL MPV Neutrophils % % Lymphocytes % % Monocytes % % Eosinophils % % Basophils % % Neutrophils # (1.3-7.7) k/uL Lymphocytes # (1.0-4.8) k/uL Monocytes # (0-1.0) k/uL Eosinophils # (0-0.7) k/uL Basophils # (0-0.2) k/uL PT (9.0-12.0) sec INR (<1.2) APTT (22.0-30.0) sec Sodium (137-145) mmol/L Potassium (3.5-5.1) mmol/L Chloride (98-107) mmol/L Carbon Dioxide (22-30) mmol/L Anion Gap mmol/L BUN (9-20) mg/dL Creatinine (0.66-1.25) mg/dL Est GFR (CKD-EPI)AfAm (>60 ml/min/1.73 sqM) Est GFR (CKD-EPI)NonAf (>60 ml/min/1.73 sqM) Glucose (74-99) mg/dL Calcium (8.4-10.2) mg/dL Magnesium (1.6-2.3) mg/dL Total Bilirubin (0.2-1.3) mg/dL AST (17-59) U/L ALT (4-49) U/L Alkaline Phosphatase (38-126) U/L Troponin I <0.012 (0.000-0.034) ng/mL Total Protein (6.3-8.2) g/dL Albumin (3.5-5.0) g/dL Disposition Clinical Impression: Hypertension Disposition: HOME SELF-CARE Is patient prescribed a controlled substance at d/c from ED?: No Referrals: Shamir Goins DO [Primary Care Provider] - 1-2 days Time of Disposition: 17:47
[2020-02-19 20:13] VITALS: BP 142/78; PULSE 66; RESP 20; TEMP 98.2
== END 2020-02-19 20:28 | disposition home or self-care (01) ==
LOC: EC 18:27
DX: I10 Essential (primary) hypertension (principal); I48.91 Unspecified atrial fibrillation; Z79.01 Long term (current) use of anticoagulants
CPT/HCPCS: 36415; 80053; 83735; 84484; 85025; 85610; 85730; 93005; 99284

== ENCOUNTER → 2020-03-02 | Outpatient (CLI) | payer BC ==
--- NOTE | 2020-03-02 22:07 | MR ---
EXAMINATION TYPE: MR knee RT wo con DATE OF EXAM: 03/02/2020 COMPARISON: Plain film 02/07/2020 HISTORY: Right knee pain TECHNIQUE: Multiplanar, multisequence imaging of the right knee is performed without IV contrast. FINDINGS: MEDIAL MENISCUS: The undersurface of the posterior horn the medial meniscus shows some increased sign al which extends posteriorly, sagittal image #11 and 12 consistent with tear, coronal image 20 LATERAL MENISCUS: Anterior and posterior horns are intact without tear. CRUCIATE LIGAMENTS: Some increased signal within the substance of the anterior cruciate ligament samreen cially towards the insertion could be due to strain or partial tear, coronal image #20, sagittal imag e #19 COLLATERAL LIGAMENTS: The medial collateral ligament and lateral collateral ligament complex are inta ct and unremarkable. EXTENSOR MECHANISM: Visualized quadriceps and patellar tendons are intact. EFFUSION: Small joint effusion present the suprapatellar region POPLITEAL CYST: No popliteal/zayas cyst. 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 Findings consistent with tear of the posterior horn medial meniscus. Osteoarthr itis.
== END | disposition home or self-care (01) ==
LOC: RADMRIMAIN 16:53
PROVIDERS: ATTEND Orthopaedic Surgery
DX: M17.11 Unilateral primary osteoarthritis, right knee (principal)

== ENCOUNTER 2020-06-22 03:05 | Emergency (ER) | payer BC ==
[2020-06-22] MEDS ORDERED: SODIUM CHLORIDE 0.9% 1,000 ML IV STA (03:30)
[2020-06-22] MEDS ORDERED: KETOROLAC 15 MG/ML 1 ML VIAL IVP STA (03:30)
[2020-06-22] MEDS ORDERED: DIAZEPAM 5 MG/ML 2 ML INJ IVP STA (03:30)
[2020-06-22] MEDS ORDERED: MORPHINE SULFATE 4 MG/ML SYRINGE IV STA (03:30)
--- NOTE | 2020-06-22 03:40 | ED ---
Back Pain HPI - General Chief Complaint: Back Pain/Injury Stated Complaint: Back Pain Time Seen by Provider: 06/22/20 03:13 Source: patient, family, RN notes reviewed, old records reviewed Limitations: no limitations - History of Present Illness Initial Comments: This is a 59-year-old male DF for evaluation of acute on chronic back pain. History of recurrent back pain with this pain he has had no recent trauma, but today it is Worse. No fevers. Able to ambulate without difficulty, no loss of bowel or bladder MD Complaint: back pain -: hour(s) Similar Symptoms Previously: Yes Place: home Radiation: none Severity: moderate Severity scale (1-10): 7 Quality: aching Consistency: constant Improves With: none Worsens With: none Context: while lifting, turning/twisting Associated Symptoms: denies other symptoms - Related Data Home Medications Medication Instructions Recorded Confirmed Rivaroxaban [Xarelto] 20 mg PO HS 02/15/20 02/15/20 Previous Rx's Medication Instructions Recorded Pantoprazole [Protonix] 40 mg PO AC-JESSICAKFST #30 tablet.dr 02/16/20 Flecainide [Tambocor] 100 mg PO Q12HR #120 tab 02/18/20 Metoprolol Succinate (ER) [Toprol 50 mg PO DAILY #30 tab.er.24h 02/18/20 XL] Allergies Allergy/AdvReac Type Severity Reaction Status Date / Time No Known Allergies Allergy Verified 06/22/20 03:10 Review of Systems ROS Statement: Those systems with pertinent positive or pertinent negative responses have been documented in the HPI. ROS Other: All systems not noted in ROS Statement are negative. Past Medical History Past Medical History: Atrial Fibrillation Additional Past Medical History / Comment(s): back pain History of Any Multi-Drug Resistant Organisms: None Reported Past Surgical History: No Surgical Hx Reported Past Psychological History: No Psychological Hx Reported Smoking Status: Never smoker Past Alcohol Use History: Daily Past Drug Use History: None Reported General Exam - General Exam Comments Initial Comments: No focal neurological deficits Limitations: no limitations General appearance: alert, in no apparent distress Head exam: Present: atraumatic, normocephalic, normal inspection Eye exam: Present: normal appearance, PERRL, EOMI. Absent: scleral icterus, conjunctival injection, periorbital swelling ENT exam: Present: normal exam, mucous membranes moist Neck exam: Present: normal inspection. Absent: tenderness, meningismus, lymphadenopathy Respiratory exam: Present: normal lung sounds bilaterally. Absent: respiratory distress, wheezes, rales, rhonchi, stridor Cardiovascular Exam: Present: regular rate, normal rhythm, normal heart sounds. Absent: systolic murmur, diastolic murmur, rubs, gallop, clicks GI/Abdominal exam: Present: soft, normal bowel sounds. Absent: distended, tenderness, guarding, rebound, rigid Extremities exam: Present: normal inspection, full ROM, normal capillary refill. Absent: tenderness, pedal edema, joint swelling, calf tenderness Back exam: Present: normal inspection Neurological exam: Present: alert, oriented X3, CN II-XII intact Psychiatric exam: Present: normal affect, normal mood Skin exam: Present: warm, dry, intact, normal color. Absent: rash Course Vital Signs 06/22/20 06/22/20 06/22/20 03:10 05:24 06:33 Temperature 97.9 F 98.7 F Pulse Rate 76 68 87 Respiratory 18 19 19 Rate Blood Pressure 143/83 131/80 136/95 O2 Sat by Pulse 98 98 98 Oximetry - Reevaluation(s) Reevaluation #1: Medical record is reviewed Patient symptoms are significantly improved at this point Patient informed of results and questions are answered 0 Medical Decision Making - Medical Decision Making 59 male mechanical back pain and radiculopathy. No significant neurological deficit no loss of bowel or bladder. Patient can be discharged home - Lab Data Result diagrams: 06/22/20 03:44 06/22/20 03:44 Lab Results 06/22/20 06/22/20 Range/Units 03:44 03:44 WBC 7.6 (3.8-10.6) k/uL RBC 4.95 (4.30-5.90) m/uL Hgb 14.8 (13.0-17.5) gm/dL Hct 43.1 (39.0-53.0) % MCV 87.0 (80.0-100.0) fL MCH 29.8 (25.0-35.0) pg MCHC 34.3 (31.0-37.0) g/dL RDW 12.9 (11.5-15.5) % Plt Count 298 (150-450) k/uL MPV 7.2 Neutrophils % 54 % Lymphocytes % 34 % Monocytes % 7 % Eosinophils % 2 % Basophils % 1 % Neutrophils # 4.1 (1.3-7.7) k/uL Lymphocytes # 2.6 (1.0-4.8) k/uL Monocytes # 0.6 (0-1.0) k/uL Eosinophils # 0.2 (0-0.7) k/uL Basophils # 0.1 (0-0.2) k/uL Sodium 140 (137-145) mmol/L Potassium 4.5 (3.5-5.1) mmol/L Chloride 105 (98-107) mmol/L Carbon Dioxide 23 (22-30) mmol/L Anion Gap 12 mmol/L BUN 15 (9-20) mg/dL Creatinine 0.68 (0.66-1.25) mg/dL Est GFR (CKD-EPI)AfAm >90 (>60 ml/min/1.73 sqM) Est GFR (CKD-EPI)NonAf >90 (>60 ml/min/1.73 sqM) Glucose 120 H (74-99) mg/dL Calcium 9.5 (8.4-10.2) mg/dL Phosphorus 3.7 (2.5-4.5) mg/dL Magnesium 1.8 (1.6-2.3) mg/dL Total Bilirubin 0.4 (0.2-1.3) mg/dL AST 45 (17-59) U/L ALT 38 (4-49) U/L Alkaline Phosphatase 86 (38-126) U/L Total Protein 7.7 (6.3-8.2) g/dL Albumin 4.4 (3.5-5.0) g/dL - EKG Data -: EKG Interpreted by Me (EKG shows sinus rhythm 68 SD 162 QRS 78 QTc 412) Disposition Clinical Impression: Mechanical back pain, Lumbar radiculopathy Disposition: HOME SELF-CARE Condition: Good Instructions (If sedation given, give patient instructions): Acute Low Back Pain (ED) Is patient prescribed a controlled substance at d/c from ED?: No Referrals: Shamir Goins DO [Primary Care Provider] - 1-2 days
[2020-06-22 04:08] LABS: Basophils # (A) 0.1 k/uL (0-0.2); Basophils % (A) 1 %; Eosinophils # (A) 0.2 k/uL (0-0.7); Eosinophils % (A) 2 %; HCT 43.1 % (39.0-53.0); HGB 14.8 gm/dL (13.0-17.5); Lymphocytes # (A) 2.6 k/uL (1.0-4.8); Lymphocytes % (A) 34 %; MCH 29.8 pg (25.0-35.0); MCHC 34.3 g/dL (31.0-37.0); Mean Platelet Volume 7.2; Monocytes # (A) 0.6 k/uL (0-1.0); Monocytes % (A) 7 %; Neutrophils # (A) 4.1 k/uL (1.3-7.7); Neutrophils % (A) 54 %; Platelet Count 298 k/uL (150-450); RBC 4.95 m/uL (4.30-5.90); RDW 12.9 % (11.5-15.5); WBC 7.6 k/uL (3.8-10.6)
[2020-06-22 04:19] LABS: ALT 38 U/L (4-49); AST 45 U/L (17-59); African American GFR (CKD) >90 (>60 ml/min/1.73 sqM); Albumin 4.4 g/dL (3.5-5.0); Alkaline Phosphatase 86 U/L (38-126); Anion Gap 12 mmol/L; Blood Urea Nitrogen 15 mg/dL (9-20); Calcium 9.5 mg/dL (8.4-10.2); Carbon Dioxide 23 mmol/L (22-30); Chloride 105 mmol/L (98-107); Glucose 120 mg/dL (74-99); Magnesium 1.8 mg/dL (1.6-2.3); Non-African American GFR(CKD) >90 (>60 ml/min/1.73 sqM); Phosphorus 3.7 mg/dL (2.5-4.5); Potassium 4.5 mmol/L (3.5-5.1); Sodium 140 mmol/L (137-145); Total Bilirubin 0.4 mg/dL (0.2-1.3); Total Protein 7.7 g/dL (6.3-8.2)
[2020-06-22] MEDS ORDERED: HYDROmorphone 1 MG/ML 1 ML SYRINGE IVP STA (05:10)
[2020-06-22 05:25] VITALS: RESP 19
[2020-06-22] MEDS ORDERED: Acetaminophen-Codeine 300-30mg TAB PO STA (06:13)
[2020-06-22] MEDS ORDERED: DEXAMETHASONE SOD PHOSPHATE 10 MG/ML 1 ML VIAL IV STA (06:13)
[2020-06-22] MEDS ORDERED: IBUPROFEN 600 MG STARTER PACK 4 TAB BTL PO STA (06:13)
[2020-06-22] MEDS ORDERED: ACET/COD 300 MG/30 MG STARTER PACK 6 TAB BTL PO STA (06:13)
[2020-06-22 06:35] VITALS: BP 136/95; PULSE 87; TEMP 98.7
== END 2020-06-22 06:33 | disposition home or self-care (01) ==
LOC: EC 03:05
DX: M54.16 Radiculopathy, lumbar region (principal); I48.91 Unspecified atrial fibrillation; Z79.01 Long term (current) use of anticoagulants
CPT/HCPCS: 36415; 93005; 80053; 83735; 84100; 85025; 99284; 96374; 96375 ×4; 96361; J2270; J1100; J3360; J1170; J1885

== ENCOUNTER → 2020-07-24 | Outpatient (CLI) | payer BC ==
--- NOTE | 2020-07-25 11:29 | MR ---
EXAMINATION TYPE: MR lumbar spine wo con DATE OF EXAM: 07/24/2020 COMPARISON: HISTORY: Low back pain that goes down left leg. TECHNIQUE: Multiplanar, multisequence images of the lumbar spine were acquired. L1-L2: Normal disc appearance without desiccation. No herniation, protrusion or disc bulging. No ca nal stenosis is present. Foramina are patent bilaterally. L2-L3: Posterior broad-based disc bulge causes mild anterior mass effect on the thecal sac. No signif icant foraminal encroachment. L3-L4: Posterior extension endplate disc complex causes anterior mass effect on the thecal sac. Circu mferential extension causes some foraminal encroachment greater on the right. L4-L5: Listhesis contributes to cause some mild anterior mass effect on the thecal sac, there is a le ft lateral disc herniation present study due to the neural foramen, there is encroachment on the late ral recess. Facet arthropathy changes present. Correlate for left L4 radiculopathy. L5-S1: There is facet arthropathy change present. No evident disc herniation. Suspect a possible conj oined nerve root exiting the right neural foramen. Lumbar segments are intact. No paraspinal masses are identified. Conus medullaris has a normal appe arance. There is minimal retrolisthesis grade 1 L4-5, L3-4. Lumbar vertebral bodies show preserved he ight. There is multilevel spondylosis with endplate discogenic marrow signal change. Loss of disc hei ght and signal is present at intervertebral levels. There is a spinal curvature. No significant spina l stenosis. IMPRESSION: Degenerative disc disease and facet arthropathy. Lateral disc herniation L4-5. There is a spinal curv ature.
== END | disposition home or self-care (01) ==
LOC: RADMRIMAIN 19:08
PROVIDERS: ATTEND Orthopaedic Surgery
DX: M51.26 Other intervertebral disc displacement, lumbar region (principal); M51.36 Other intervertebral disc degeneration, lumbar region; M47.816 Spondylosis without myelopathy or radiculopathy, lumbar region; M43.8X6 Other specified deforming dorsopathies, lumbar region
CPT/HCPCS: 72148

== ENCOUNTER → 2020-10-15 | Outpatient (CLI) | payer BC ==
[2020-10-15 08:25] VITALS: BP 128/81; PULSE 72; RESP 18; TEMP 98.4
--- NOTE | 2020-10-15 09:08 | P.PAINCN ---
History of Present Illness - Reason for Consult Consult date: 10/15/20 - History of Present Illness This is 59 years old male with a history of low back pain with radiation to the left lower extremity, patient was referred to [facility], spine surgeon Dr. addison overton to have left-sided transforaminal steroid injection at L4 5, patient is currently on Xeralto , and during the process to get approval from the power washer to hold the Xeralto before the procedure, patient reported that his symptoms change, and currently he had pain in the low back area radiating to both lower extremity , is more severe on the right side, also patient complaining of severe neck pain which is increased with any neck movement, neck pain increased over the last 2 months, he denies any motor or sensory deficit he denies any fever or night sweats he denies any numbness or tingling sensation Past Medical History Past Medical History: Atrial Fibrillation, GERD/Reflux, Osteoarthritis (OA) Additional Past Medical History / Comment(s): back/NECK pain History of Any Multi-Drug Resistant Organisms: None Reported Past Surgical History: Tonsillectomy Additional Past Surgical History / Comment(s): WISDOM TEETH REMOVED AND DENTAL IMPLANTS , COLONOSCOPY, Past Anesthesia/Blood Transfusion Reactions: No Reported Reaction Smoking Status: Never smoker - Past Family History Mother Family Medical History: No Reported History Medications and Allergies Home Medications Medication Instructions Recorded Confirmed Type Rivaroxaban [Xarelto] 20 mg PO HS 02/15/20 10/15/20 History Pantoprazole [Protonix] 40 mg PO LONNIE #30 tablet. 02/16/20 10/15/20 Rx Metoprolol Succinate (ER) [Toprol 50 mg PO DAILY #30 tab.er.24h 02/18/20 10/15/20 Rx XL] Flecainide [Tambocor] 100 mg PO Q12HR 09/28/20 10/15/20 History Ibuprofen [Motrin] 800 mg PO BID 10/14/20 10/15/20 History Pantoprazole Sodium [Protonix] 20 mg PO DAILY 10/14/20 10/15/20 History Allergies Allergy/AdvReac Type Severity Reaction Status Date / Time No Known Allergies Allergy Verified 10/14/20 10:30 Physical Exam Vitals: Vital Signs Temp Pulse Resp BP Pulse Ox 10/15/20 08:18 98.4 F 72 18 128/81 96 Physical Examinations : -Constitutiona : Cooperative , not in acute distress . -HEENT : nech : supple , no Lymphadenopathy , normal thyroid size . : eyes : no ptosis , no icterus, no photophobia . - neurologic : Cranial nerve II to XII intact , no focal neurological deffecit . -psychatric : alert , oriented X 3 , appropriate affect , intact judgment and insight . -Lymphatic : no Lymphadenopathy . - musculoskeltal : Cervical Spine motor stregnth in the deltoid and bi ceps, normal right side , normal Left side motor stregnth biceps and the wrist extensors normal right side ,normal left side . motor stregnth in the triceps muscle . normal Right side , normal Left side deep tendon reflexes normal at the biceps , normal at Brachioradialis , normal at triceps. cervical facet loading test: Positive Bilaterally Spurling test= negative bilaterally. Neck distraction test= negative bilaterally [place] sign= negative bilaterally Lumber spine moter stegnth lower extremities ,thigh and legs 5/5 Right side , 5/5 Left side deep tendon reflexes : normal Knee Jerk , normal ankle Jerk lumber facet Loading Test =positive Right , positive Left Range of motion of the lumbar spine Flexion 30 degrees, extension 10 degrees strait leg raising test = positive at 45 degree Fabere test= positive Right , and positive LT . tenderness over the Sacroiliac joint on the Right , and Left sides Results Comments: MRI of the lumbar spine L3 4 foraminal stenosis L4 5 spondylolisthesis and facet joint arthropathy left lateral disc herniation at L4 5, L5-S1 facet joint arthropathy Assessment and Plan Plan: Assessment and plan=1-cervical spondylosis. 2-lumbar radiculopathy. 3-lumbar disc herniation. 4-lumbar spondylosis with lumbar facet arthropathy. 5-chronic use of anticoagulation Xarelto Patient was referred to [facility] for left side transforaminal epidural steroid injection at L4 5, since the refferal, the patient's symptoms completely changed, patient currently having severe low back pain radiating to both lower extremity, he is having severe neck pain which is increased with any neck movement, and patient reported that his neck pain is more severe than his low back pain, and he wished to focus the treatment on his neck first, we will order MRI of the cervical spine without contrast, and patient will come back for evaluation after the MRI, clinically patient needs diagnostic medial branch block, and possible RFA, and this will be determined after we get the MRI report, Time with Patient: Greater than 30 PQRS Measure Charge Sheet Measure #130: Documentation of Current Meds in Medical Chart: Patient's medications documented in chart Measure #226: Tobacco Use: Screen & Cessation Intervention: Pt not a tobacco user Measure #111: Pneumonia Vaccination: Pneumococcal vaccine NOT administered or previously given Measure #47: Advance Care Plan: Advance care planning discussed & documented, pt chose/unable to give Measure #412: Opioid Treatment Agreement: No documentation of signed opioid treatment agreement Measure #408: Opioid Therapy Follow-up Evaluation: Patient had NO f/u eval minimum every 3 months during opioid therapy Measure #317: Preventitive Care & Scrn High Bld Press & F/U: Normal blood pressure, f/u not required Measure #128: Body Mass Index (BMI) Screening & Follow-up: BMI documented ABOVE normal parameters - f/u documented Measure #131: Pain Assessment & Follow-up: Pain positive & plan documented, Follow-up scheduled Measure #431: Unhealthy Alcohol Use Preventative Care & Scrn: Patient not identified as an unhealthy alcohol user PQRS Narrative: Blood Pressure 128/81 Pain Intensity [Right Neck] 5 Pain Intensity [Left Lower 3 Back] Scale Used Numeric (1 - 10) Hx Alcohol Use (MH) Yes Home Medications: Ambulatory Orders Rivaroxaban [Xarelto] 20 mg PO HS 02/15/20 Pantoprazole [Protonix] 40 mg PO RILEY-JESSICAKFST #30 tablet.dr 02/16/20 Metoprolol Succinate (ER) [Toprol XL] 50 mg PO DAILY #30 tab.er.24h 02/18/20 Flecainide [Tambocor] 100 mg PO Q12HR 09/28/20 Ibuprofen [Motrin] 800 mg PO BID 10/14/20 Pantoprazole Sodium [Protonix] 20 mg PO DAILY 10/14/20
== END | disposition home or self-care (01) ==
LOC: PNWHC3 08:01
PROVIDERS: ATTEND Specialist
DX: M48.061 Spinal stenosis, lumbar region without neurogenic claudication (principal); M51.26 Other intervertebral disc displacement, lumbar region; M43.16 Spondylolisthesis, lumbar region; M47.812 Spondylosis without myelopathy or radiculopathy, cervical region; M47.26 Other spondylosis with radiculopathy, lumbar region; M46.96 Unspecified inflammatory spondylopathy, lumbar region; I48.91 Unspecified atrial fibrillation; Z79.01 Long term (current) use of anticoagulants; Z79.899 Other long term (current) drug therapy; Z79.1 Long term (current) use of non-steroidal anti-inflammatories (NSAID)
CPT/HCPCS: 99211

== ENCOUNTER → 2020-10-21 | Outpatient (CLI) | payer BC ==
--- NOTE | 2020-10-21 09:48 | XR ---
EXAMINATION TYPE: XR cervical spine comp DATE OF EXAM: 10/21/2020 CLINICAL HISTORY: pain COMPARISON: NONE TECHNIQUE: Frontal, lateral, oblique, swimmers, and open mouth view of the cervical spine are obtaine d. FINDINGS: The cervical spine is visualized in its entirety from C1 thru the top of T1 level. It is s atisfactory in alignment without evidence of acute fracture or dislocation. The pre-vertebral soft t issue appears within normal limits. Moderate degenerative disc space narrowing at C5-6 and C6-7. Vent ral and dorsal spondylosis. The C1-C2 articulation is unremarkable on the open mouth view. The obliq ue images are within normal limits. IMPRESSION: No acute fracture or dislocation is seen in the cervical spine.ICD 10 NO FRACTURE, INITI AL EVALUATION
== END | disposition home or self-care (01) ==
LOC: RADXRMAIN 09:20
PROVIDERS: ATTEND Specialist
DX: M47.812 Spondylosis without myelopathy or radiculopathy, cervical region (principal)
CPT/HCPCS: 72050

== ENCOUNTER → 2020-10-28 | Outpatient (CLI) | payer BC ==
--- NOTE | 2020-10-29 05:57 | MR ---
EXAMINATION TYPE: MR cervical spine wo con DATE OF EXAM: 10/28/2020 COMPARISON: None HISTORY: Neck pain for 3 months. Multiplanar multiecho imaging of the cervical spine without contrast. Cervical vertebra have normal alignment. There is degenerative disc space narrowing at C5-6 and C6-7 with spurring of the endplates. There is also narrowing at C7-T1. Cervical spinal cord shows fairly n ormal signal pattern. There is no edema. There is no cervical spinal stenosis. There is posterior dis c bulging and spurring at C6-7 and C7-T1. The canal measures 9 mm at the narrowest point. I see no octavio ny destructive process. There is no compression fracture. Brainstem is intact. Posterior elements are intact. IMPRESSION: Spondylotic changes in the lower cervical spine. No spinal stenosis. Small posterior disc herniations as above. No fracture.
== END | disposition home or self-care (01) ==
LOC: RADMRIMAIN 19:47
PROVIDERS: ATTEND Specialist
DX: M50.20 Other cervical disc displacement, unspecified cervical region (principal)
CPT/HCPCS: 72141

== ENCOUNTER → 2020-11-04 | Outpatient (CLI) | payer BC ==
[2020-11-04 12:19] VITALS: BP 155/93; PULSE 70; RESP 18; TEMP 98
--- NOTE | 2020-11-04 12:35 | P.PAINPG ---
Subjective Progress Note Date: 11/04/20 This is 59 years old male with a history of low back pain with radiation to the left lower extremity, patient was referred to us by Dr Reynoso for L TFESI L4-5. Patient is on Xarelto. Our plan was to do this but his symptoms then changed, currently having pain in his back radiating into bilateral lower extremities R > L. ALso had severe neck pain. His goal was to focus on the neck so we ordered a cervical MRI. He is here for followup today. Cervical MRI does degenerative disc space narrowing at C5-C6 and C6-C7 and spurring of endplate. There is also some narrowing at C7-T1. No significant spinal canal stenosis. There is a posterior disc bulge and spurring at C6-C7 and C7-T1. No compression fractures. Overall there are spondylitic changes in the lower cervical spine. At this time the patient's main complaint is in the neck radiating into the right shoulder and trapezius area. Pain is described as aching and dull and it does get better throughout the day. Pain is worse with lateral rotation of the neck and made better with the meloxicam 50 mg that he had been taking. 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 We had a long discussion about his overall pathology in the process of medial branch blocks and proceeding to ablation. He would like to proceed with this. Physical Exam Physical Examinations : -Constitutiona : Cooperative , not in acute distress . -HEENT : nech : supple , no Lymphadenopathy , normal thyroid size . : eyes : no ptosis , no icterus, no photophobia . - neurologic : Cranial nerve II to XII intact , no focal neurological deffecit . -psychatric : alert , oriented X 3 , appropriate affect , intact judgment and insight . -Lymphatic : no Lymphadenopathy . - musculoskeltal : Cervical Spine motor stregnth in the deltoid and biceps, normal right side , normal Left side motor stregnth biceps and the wrist extensors normal right side ,normal left side . motor stregnth in the triceps muscle . normal Right side , normal Left side deep tendon reflexes normal at the biceps , normal at Brachioradialis , normal at triceps. cervical facet loading test: Positive Bilaterally Spurling test= negative bilaterally. Neck distraction test= positive bilaterally [place] sign= negative bilaterally Results Comments: MRI of the lumbar spine L3 4 foraminal stenosis L4 5 spondylolisthesis and facet joint arthropathy left lateral disc herniation at L4 5, L5-S1 facet joint arthropathy Assessment and Plan Plan: Assessment and plan=1-cervical spondylosis. 2-lumbar radiculopathy. 3-lumbar disc herniation. 4-lumbar spondylosis with lumbar facet arthropathy. At this Time we'll schedule him for right-sided medial branch block C5-C6 and C6-C7. I have spent 31 minutes with chart reviewing the patient, speaking to the patient, and discussing plan of care with the patient PQRS Measure Charge Sheet Measure #130: Documentation of Current Meds in Medical Chart: Patient's medications documented in chart Measure #226: Tobacco Use: Screen & Cessation Intervention: Pt not a tobacco user Measure #111: Pneumonia Vaccination: Pneumococcal vaccine NOT administered or previously given Measure #47: Advance Care Plan: Advance care planning discussed & documented, pt chose/unable to give Measure #412: Opioid Treatment Agreement: No documentation of signed opioid treatment agreement Measure #408: Opioid Therapy Follow-up Evaluation: Patient had NO f/u eval minimum every 3 months during opioid therapy Measure #317: Preventitive Care & Scrn High Bld Press & F/U: Normal blood pressure, f/u not required Measure #128: Body Mass Index (BMI) Screening & Follow-up: BMI documented ABOVE normal parameters - f/u documented Measure #131: Pain Assessment & Follow-up: Pain positive & plan documented, Follow-up scheduled Measure #431: Unhealthy Alcohol Use Preventative Care & Scrn: Patient not identified as an unhealthy alcohol user Objective - Vital Signs Vital signs: Intake & Output 11/03/20 11/04/20 11/04/20 18:59 06:59 18:59 Weight 73.936 kg PQRS Measure Charge Sheet PQRS Narrative: Pain Intensity [Neck] 3 Scale Used Numeric (1 - 10) Hx Alcohol Use (MH) Yes Home Medications: Ambulatory Orders Rivaroxaban [Xarelto] 20 mg PO HS 02/15/20 Pantoprazole [Protonix] 40 mg PO AC-BRKFST #30 tablet.dr 02/16/20 Metoprolol Succinate (ER) [Toprol XL] 50 mg PO DAILY #30 tab.er.24h 02/18/20 Flecainide [Tambocor] 100 mg PO Q12HR 09/28/20 Ibuprofen [Motrin] 800 mg PO BID 10/14/20 Pantoprazole Sodium [Protonix] 20 mg PO DAILY 10/14/20 Controlled Substance Measures - Controlled Substance Measures Is patient prescribed a controlled substance at discharge?: No
== END | disposition home or self-care (01) ==
LOC: PNWHC3 12:04
PROVIDERS: ATTEND Anesthesiology
DX: M47.892 Other spondylosis, cervical region (principal); M54.16 Radiculopathy, lumbar region; M51.26 Other intervertebral disc displacement, lumbar region; M47.896 Other spondylosis, lumbar region
CPT/HCPCS: 99211

== ENCOUNTER 2020-12-11 13:16 | Day surgery (SDC) | payer BC ==
[2020-12-08 12:19] VITALS: BMI 24.7
[~2020-12-11 13:16] MED LIST: LACTATED RINGERS 1,000 ML IV SCH
[2020-12-11 13:37] VITALS: RESP 16; TEMP 98.1
[2020-12-11] MEDS ORDERED: methylPREDNISolone ACETATE 40 MG/ML 1 ML VIAL ONE (14:22)
[2020-12-11] MEDS ORDERED: ROPIVACAINE 5MG/ML 20ML VIAL ONE (14:22)
--- NOTE | 2020-12-11 14:54 | P.PCN ---
Date of Procedure: 12/11/20 Procedure(s) Performed: PREOPERATIVE DIAGNOSIS: Cervical Spondylosis with Facet Arthropathy.without myelopathy POSTOPERATIVE DIAGNOSIS: Cervical Spondylosis Facet Arthropathy. Without myelopathy PROCEDURES: Diagnostic right. C5 , C6, C7 medial branch blocks, with fluoroscopic guidance (fluoroscopy images available in radiology department ) ( to target the facet joint at Right C5- 6 ,and C6-7 ) ANESTHESIA:none EBL: Minimal PROCEDURE INDICATION: The patient with neck pain secondary to cervical arthropathy unresponsive to more conservative treatments. PROCEDURE DESCRIPTION / TECHNIQUE: The patient was seen and identified in the p reoperative area. Risks, benefits, complications, and alternatives were discussed with the patient, the patient agreed to proceed with the procedure and signed the consent. IV was started. Vital signs remained stable throughout the procedure. Patient was taken to the OR and time out was completed. The patient was placed in the lateral position on the procedure table.( right side up ) A pillow was placed under the patients chest to increase the cervical interlaminar space. The cervical area was prepped and draped in the usual sterile fashion. Critical pause was taken. Vital signs were closely monitored during the procedure. . Using cross-table lateral fluoroscopy, the centroid of the trapezoid of right C5 C6, C7 was identified, marked, and localized with 1% lidocaine 1 ml at each level for skin and Sub Q infiltrations . Subsequently, a 25 G 3 spinal needle was advanced guided by fluoroscopy to the centroid of the trapezoid of Right C5, C6, C7 . Smallwood tip position was confirmed at the centroid of the trapezoids of Right C5 ,C6 ,C7 with anteroposterior fluoroscopy. Subsequently, 1,5 ml of preservative-free Ropivacaine 0.5% mixed with Depo-Medrol 40 mg and half ml of the mixture was injected after negative aspiration for blood and CSF. Smallwood was then removed COMPLICATIONS: No acute complications. DISPOSITION / PLANS: The patient was placed in a supine position and transferred to the recovery area in a stable condition for observation and was discharged from the recovery room after meeting discharge criteria. Home discharge instructions given to the patient by the staff. The patient was reexamined prior to discharge. The patient will schedule a follow up in the clinic in 2-4 weeks. Note = we should positions patients lateral or ,supine position ,becaus prone positions I could not visulatize C6 ,or C7 vertebra .
[2020-12-11 15:08] VITALS: BP 123/82; PULSE 61
--- NOTE | 2020-12-12 07:56 | FL ---
EXAMINATION TYPE: FL guided pain mgmt statistic DATE OF EXAM: 12/11/2020 CLINICAL HISTORY: Shoulder pain. TECHNIQUE: Fluoroscopy. COMPARISON: None. FINDINGS: Fluoroscopic guidance was provided during pain relief procedure performed by Dr. Carey . A total of 75 seconds of fluoroscopic time was utilized during the procedure and two spot images a re acquired. Images acquired shows needle localization near level of shoulder joint. IMPRESSION: As Above.
== END 2020-12-11 15:15 | disposition home or self-care (01) ==
LOC: ORPAIN 13:16
PROVIDERS: ATTEND Specialist
DX: M47.812 Spondylosis without myelopathy or radiculopathy, cervical region (principal)
CPT/HCPCS: 64490; 64491; 64492; J1030; J2795

== ENCOUNTER → 2021-02-10 | Outpatient (CLI) | payer BC ==
[2021-02-10 13:44] VITALS: BP 155/87; PULSE 79; RESP 18; TEMP 97.3
--- NOTE | 2021-02-10 14:50 | P.PN ---
Subjective Progress Note Date: 02/10/21 Gonzalo is a 60-year-old male presenting to clinic today for follow-up evaluation after a diagnostic cervical medial branch block on the right side at C5 6 and C6 7. This procedure 12/11/2020. He has a history of cervical spondylosis and facet arthropathy without myelopathy. Unfortunately he did not have any relief with this procedure. He reports that he is still having pain on the lateral portion right side of his neck. He denies any numbness or weakness in his arms. His pain is increased with activity and twisting and rotating his neck. Better with rest. He takes very little Medication at this time. With a long conversation regarding different interventional options and medication regimens would like to move forward with cervical and trapezius trigger point injection on the right side. Objective - Vital Signs Vital signs: Intake & Output 02/09/21 02/10/21 02/10/21 18:59 06:59 18:59 Weight 73.936 kg - Exam Physical Examinations : -Constitutiona : Cooperative , not in acute distress . -HEENT : nech : supple , no Lymphadenopathy , normal thyroid size . : eyes : no ptosis , no icterus, no photopho amber . - neurologic : Cranial nerve II to XII intact , no focal neurological deffecit . -psychatric : alert , oriented X 3 , appropriate affect , intact judgment and insight . -Lymphatic : no Lymphadenopathy . - musculoskeltal : Cervical Spine motor stregnth in the deltoid and b iceps, normal right side , normal Left side motor stregnth biceps and the wrist extensors normal right side ,normal left side . motor stregnth in the triceps muscle . normal Right side , normal Left side deep tendon reflexes normal at the biceps , normal at Brachioradialis , normal at triceps. Cervical paraspinal and trapezius muscles and spasm right side with multiple trigger points cervical facet loading test: Positive Bilaterally Spurling test= positive Right , positive left. Neck distraction test= positive Right , positive left. [place] sign= negative Assessment and Plan Assessment: Assessment and plan Assessment: Cervical spondylosis and facet arthropathy without myelopathy Paraspinal muscle spasm Trapezius muscle spasm Plan: Patient could benefit from right-sided cervical and trapezius trigger point injections Begin Robaxin 750 mg every 8 hours as needed for muscle spasms Dr. Carey was available by phone for consultation during his visit. I have spent 28 minutes on patient care today. The time was used to review the medical records including relevant urine studies and Prescription history (MAPs), review of the available imaging, evaluation and examination of the patient, coordination of care with the medical staff and if applicable referring physicians, as well as creation of the medical record. - PQRS measures = - Patient's medications are documented in the chart. -Tobacco use is negative -Patient's has not received pneumococcal vaccine. -Advanced care planning discussed, patient not eligible. -Opiate contract at signed. -Pain positive and follow-up visit/procedure is scheduled. -Patient's blood pressure measured 55/87, and documented in the record ,and patient will follow up with the primary care. -Patient was not identified as an unhealthy alcohol user Time with Patient: Less than 30
== END | disposition home or self-care (01) ==
LOC: PNWHC3 13:36
PROVIDERS: ATTEND Student in an Organized Health Care Education/Training Program
DX: M47.892 Other spondylosis, cervical region (principal); M46.92 Unspecified inflammatory spondylopathy, cervical region
CPT/HCPCS: 99211

== ENCOUNTER 2021-04-29 13:10 | Day surgery (SDC) | payer BC ==
[2021-04-28 08:58] VITALS: BMI 25.5
[2021-04-29 13:21] VITALS: TEMP 97.1
[2021-04-29] MEDS ORDERED: ROPIVACAINE 5MG/ML 20ML VIAL ONE (13:32)
[2021-04-29] MEDS ORDERED: methylPREDNISolone ACETATE 40 MG/ML 1 ML VIAL ONE (13:32)
--- NOTE | 2021-04-29 13:45 | P.PCN ---
Date of Procedure: 04/29/21 Procedure(s) Performed: Procedure= trigger point injection right cervical paraspinal muscles and right trapezius muscle total of 3 trigger point injected Preoperative diagnosis= 1- myofascial pain syndrome cervical area 2-cervical spondylosis with facet arthropathy Postoperative diagnosis=Same as preop Diagnosis . Complication = none Condition= stable Anesthesia=none Indication for the procedure= patient complaining of sever right side neck pain , examination was positive for multiple trigger point identified in the right cervical area. Description of the procedure= procedure risk and benefits discussed with the patient, including but not limited, risk of infection and bleeding, and ALLERGIC reaction to the medication and not complete pain relief and patient agreed with the preceding patient taken to the operating room, placed in prone position or standard monitors applied to the patient then after neck prepped with chlorhexidine 3 times , total of 3 trigger point identified in the right side lower cervical para spinal muscles,and right trapezius muscle ,each one of them ,injected with 3 mL of the mixture of ropivacaine 0.5% 9 ML and 40 mg of Depo- Medrol mixed together and 3 ML of the mixture injected at each trigger point after negative aspiration, injection done using 25-gauge needle, and there was no paresthesia during the injection, patient will follow up in the pain clinic in a few weeks.
[2021-04-29 13:47] VITALS: RESP 18
[2021-04-29 14:14] VITALS: BP 143/84; PULSE 63
== END 2021-04-29 14:20 | disposition home or self-care (01) ==
LOC: ORPAIN 13:10
PROVIDERS: ATTEND Specialist
DX: M79.18 Myalgia, other site (principal); M47.812 Spondylosis without myelopathy or radiculopathy, cervical region; I25.10 Atherosclerotic heart disease of native coronary artery without angina pectoris; Z79.01 Long term (current) use of anticoagulants
CPT/HCPCS: 20553; J1030; J2795

== ENCOUNTER → 2021-05-19 | Outpatient (CLI) | payer BC ==
--- NOTE | 2021-05-19 09:51 | P.PN ---
Subjective Progress Note Date: 05/19/21 Principal diagnosis: A 60 yr old male with a history of severe and chronic neck pain secondary to cervical degenerative disc diseases and spondylosis with facet arthropathy presents today for evaluation status post TPIs of the right cervical spine and trapezius. Patient states he experienced 30-40% pain relief for 2 weeks but the pain started to commence thereafter. Pain level is currently at 7 out of 10 in intensity, dull, achy, constant in the lower half of the cervical spine with tightness extending to the right shoulder. Pain is provoked by overhead reaching and forward flexion. Pain is alleviated with medications, topical Voltaren gel, injections, heat, monthly chiropractic treatments, use of a cervical traction device at home, repositioning and rest. Interventional pain procedures completed include facet block of the medial branches of C4 to C6, TPIs Patient is currently on Patient denies any side effects of the medication(s), denies excessive drowsiness or sleepiness, denies suicidal ideation and reports that the current pain medication is helping to control the pain and improve activities of daily living. Patient denies any motor or sensory deficits. Patient denies any fever or night sweats, denies any change in the bowel movements or urination. Physical Examination: -Constitutional: Cooperative. Not in acute distress . -HEENT: Neck is supple. No lymphadenopathy. No thyromegaly. Normal thyroid size. Eyes: No ptosis , no icterus, no photophobia. ENT: No auditory deficits. Normal oropharynx. No Thrush. - Respiratory: Chest clear to auscultations bilaterally. No wheezing. No rhonchi. - Cardiovascular: Regular rate and rhythm. S1 / S2 , no S3 , no S4. - Gastrointestinal: Abdomen soft no tenderness. Bowel sounds positive in all four quadrants. No organomegaly. - Genitourinary: Deferred. - Neurologic: Cranial nerve II to XII intact. No focal neurological deficits. - Psychatric: Alert & oriented x 3. Matching mood & appropriate affect. Judgment and insight intact. - Lymphatic: No Lymphadenopathy. - Musculoskeletal: Cervical spine: Muscle bulk/ tone/ strength in the bilateral upper extremities normal. Spurling test positive Distraction test positive Vertebral body tenderness over the C5 Facet loading test cervical area positive over the right C5 to C6 Lumbar spine: Motor bulk/ tone/ strength lower extremities , thigh and legs : 5/5 Deep tendon reflexes : Normal Knee Jerk. Normal Ankle Jerk . Vertebral body tenderness to palpation over Lumbar Facet Loading Test positive Straight Leg Raise: positive at 30 degrees right side/ left side Gaenslen's Test postive Sacral spine : Severe tenderness over the Sacroiliac joint: right side / left side Range of motion: Flexion of the lumbar spine <60 degrees Range of motion: Extension of the lumbar spine <20 degrees Gaenslen's Test positive Stanley test: positive right side / left side Assessment and plan: Chronic neck pain secondary to cervical degenerative disc disease , spondylosis with facet arthropathy without myelopathy Recommendation of NIKA of the C5-C6 Continue use of cervical traction device at home Risks, benefits of procedure discussed and patient verbalized understanding Will follow up with his PCP to refill medications as needed All patient questions answered MAPS reviewed and it was appropriate. I have spent 31 minutes on patient care today. Dr Carey was available by one for the evaluation of this patient. The time was used to review the medical records including relevant urine studies and Prescription history (MAPs), review of the available imaging, evaluation and examination of the patient, coordination of care with the medical staff and if applicable referring physicians, as well as creation of the medical record PQRS Measure Charge Sheet PQRS Narrative: Pain Intensity [Right Neck] 4 Hx Alcohol Use (MH) Yes Home Medications: Ambulatory Orders Rivaroxaban [Xarelto] 20 mg PO HS 02/15/20 Pantoprazole [Protonix] 40 mg PO RILEY-JESSICAKFSRaghavendra #30 tablet. 02/16/20 Metoprolol Succinate (ER) [Toprol XL] 50 mg PO DAILY #30 tab.er.24h 02/18/20 Flecainide [Tambocor] 100 mg PO Q12HR 09/28/20 Acetaminophen [Tylenol Arthritis] 650 mg PO DAILY PRN 02/09/21 Diclofenac Sodium [Voltaren Arthritis Pain 1% Gel] 2 gm TOPICAL DAILY PRN 02/09/21 Atorvastatin [Lipitor] 40 mg PO DAILY 02/10/21
[2021-05-19 11:41] VITALS: BP 132/88; PULSE 76; RESP 18; TEMP 97.9
== END | disposition home or self-care (01) ==
LOC: PNWHC3 08:42
PROVIDERS: ATTEND Physician Assistant Medical
DX: M47.892 Other spondylosis, cervical region (principal); M50.30 Other cervical disc degeneration, unspecified cervical region
CPT/HCPCS: 99211

== ENCOUNTER 2021-06-22 13:12 | Day surgery (SDC) | payer BC ==
[2021-06-18 14:53] VITALS: BMI 24.7
[~2021-06-22 13:12] MED LIST changes: +LIDOCAINE 1% (10MG/ML) FOR IV START INTRADERMA PRN
[2021-06-22 13:27] VITALS: TEMP 98.1
[2021-06-22] MEDS ORDERED: MIDAZOLAM 2 MG/2 ML VIAL ONE (13:53)
[2021-06-22] MEDS ORDERED: IOPAMIDOL M200 10 ML VIAL ONE (13:53)
[2021-06-22] MEDS ORDERED: fentaNYL (PF) 50 MCG/ML 2 ML AMP ONE (13:53)
[2021-06-22] MEDS ORDERED: DEXAMETHASONE SOD PHOSPHATE 10 MG/ML 1 ML VIAL ONE (13:53)
--- NOTE | 2021-06-22 14:34 | P.PCN ---
Date of Procedure: 06/22/21 Description of Procedure: Pre- and Post-operative Diagnosis: Cervical radiculopathy Procedure: C5-C6 Inter-Laminar Cervical Epidural Steroid Injection under biplanar fluoroscopy Surgeon: Mauricio Dubose Anesthesia: Local: 1% Lidocaine, IV sedation : Versed 2 mg, and fentanyl 100 g. Complications: None. Estimated blood loss: None Specimens removed: None Fluoroscopic image: saved to electronic medical records. Indications for Procedure: The patient has been suffering from neck pain and pain radiating to the upper extremity . Inadequate pain control with pharmacologic regimen. An inter-laminar approach cervical epidural steroid injection was scheduled for the patient. Procedure and Findings: The patient was seen and examined in the holding area. The written informed consent was obtained after explaining the risks, benefits, alternatives of the procedure to the patient. The patient was brought to the procedure room and was placed in the prone position on the operating table. A pillow was placed under the upper chest. Standard anesthesia monitoring was done through out the procedure. Timeout was completed. The skin preparation was done with ChloraPrep 1 and draping was done in usual sterile fashion. Sterile technique was observed throughout the procedure. Under fluoroscopic guidance, the C5-C6 inter-laminar space was identified. 3 ml of 1% Lidocaine was injected with a 25 gauge needle to achieve adequate local anesthesia of the skin and subcutaneous tissue. A 20 gauge, 3.5 inch Tuohy type epidural needle was placed and gradually advanced up to the epidural space using loss of resistance technique and fluoroscopic guidance. Lateral, oblique fluoroscopic views confirm the needle position. No paresthesia was noted. A negative aspiration was confirmed and then 1 ml of Isovue-200 was injected. A good dye spread was seen in the epidural space and it was negative for any intrathecal, intraneural or intravascular spread. A total of 5 ml solution containing 20 mg Dexamethasone, and 4 ml preservative-free Normal Saline was injected slowly with intermittent aspiration. The needle was removed intact, area was cleaned and bandage was applied. Disposition : The patient tolerated the procedure very well. The patient was transferred to the recovery room and remained stable until discharged home. The patient was given detailed discharge instructions for bleeding, infection, increased pain at the injection site, and was advised to seek immediate medical attention should significant side effects develop. The patient will be followed up with our Pain Clinic within 4 weeks for follow-up visit.
[2021-06-22] MEDS ORDERED: IV FLUID CONTINUATION 1,000 ML IV ONE (14:36)
[2021-06-22 14:43] VITALS: RESP 18
[2021-06-22 15:00] VITALS: BP 131/77; PULSE 62
--- NOTE | 2021-06-22 15:40 | FL ---
EXAMINATION TYPE: FL guided pain mgmt statistic DATE OF EXAM: 06/22/2021 HISTORY: Fluoroscopy time 35 seconds of fluoroscopy provided. IMPRESSION: 1. Fluoroscopy time.
== END 2021-06-22 15:09 | disposition home or self-care (01) ==
LOC: ORPAIN 13:12
DX: M54.12 Radiculopathy, cervical region (principal); Z79.01 Long term (current) use of anticoagulants; Z79.899 Other long term (current) drug therapy; I10 Essential (primary) hypertension; K21.9 Gastro-esophageal reflux disease without esophagitis; M19.90 Unspecified osteoarthritis, unspecified site; I48.91 Unspecified atrial fibrillation; Z98.890 Other specified postprocedural states
CPT/HCPCS: 62321; J2250; J1100; J3010; Q9966; 99152; 99153

== ENCOUNTER → 2021-06-22 | Outpatient (CLI) | payer BC ==
[2021-06-22 19:56] LABS: ALT 25 U/L (10-49); AST 25 U/L (14-35); Chol/HDL Ratio 2.72 Ratio; LDL Cholesterol,Calculated 55.4 mg/dL (0.0-131.0); VLDL Calculation 16.02 mg/dL (5.00-40.00)
== END | disposition home or self-care (01) ==
LOC: LABWHC1 11:23
PROVIDERS: ATTEND Internal Medicine Interventional Cardiology
DX: E78.2 Mixed hyperlipidemia (principal)
CPT/HCPCS: 36415; 80061; 84450; 84460

== ENCOUNTER → 2021-07-15 | Outpatient (CLI) | payer BC ==
[2021-07-15 09:21] VITALS: BP 128/83; PULSE 76; RESP 18; TEMP 97.8
--- NOTE | 2021-07-15 09:23 | P.PN ---
Subjective Progress Note Date: 07/15/21 Principal diagnosis: A 60 yr old male with a history of severe and chronic neck pain secondary to lumbar degenerative disc diseases and lumbar spondylosis with facet arthropathy presents today for evaluation s/p NIKA C5-C6 #1. Patient states he experienced 60% pain relief for 2 weeks status post procedure. Pain level is 6 out of 10 in intensity, dull, achy in the mid to lower aspects of the right side of his cervical spine with radiation of throbbing pain to his right shoulder. Pain is provoked by extension. Pain is alleviated with medications, topicals, injections, ice, heat, chiropractic treatments once a month, home exercise regimen, home-based stretching regimen, using a hot tub and rest. Interventional pain procedures completed include NIKA C5-C6 #1. TPIs of cervical spine. Patient is currently on Tylenol OTC and Voltaren gel prn. Patient denies any side effects of the medication(s), denies excessive drowsiness or sleepiness, denies suicidal ideation and reports that the current pain medication is helping to control the pain and improve activities of daily living. Patient denies any motor or sensory deficits. Patient denies any fever or night sweats, denies any change in the bowel movements or urination. Physical Examination: -Constitutional: Cooperative. Not in acute distress . -HEENT: Neck is supple. No lymphadenopathy. No thyromegaly. Normal thyroid size. Eyes: No ptosis , no icterus, no photophobia. ENT: No auditory deficits. Normal oropharynx. No Thrush. - Respiratory: Chest clear to auscultations bilaterally. No wheezing. No rhonchi. - Cardiovascular: Regular rate and rhythm. S1 / S2 , no S3 , no S4. - Gastrointestinal: Abdomen soft no tenderness. Bowel sounds positive in all four quadrants. No organomegaly. - Genitourinary: Deferred. - Neurologic: Cranial nerve II to XII intact. No focal neurological deficits. - Psychatric: Alert & oriented x 3. Matching mood & appropriate affect. Judgment and insight intact. - Lymphatic: No Lymphadenopathy. - Musculoskeletal: Cervical spine: Muscle bulk/ tone/ strength in the bilateral upper extremities normal. Vertebral body tenderness to palpation over C4, C5 with accompanying R paraspinal muscle tenderness Facet loading test cervical area positive. Lumbar spine: Motor bulk/ tone/ strength lower extremities , thigh and legs : 5/5 Deep tendon reflexes : Normal Knee Jerk. Normal Ankle Jerk . Vertebral body tenderness to palpation over Lumbar Facet Loading Test positive Straight Leg Raise: positive at 30 degrees right side/ left side Gaenslen's Test positive Sacral spine : Severe tenderness over the Sacroiliac joint: right side / left side Range of motion: Flexion of the lumbar spine <60 degrees Range of motion: Extension of the lumbar spine <20 degrees Gaenslen's Test positive Stanley test: positive right side / left side Assessment and plan: Chronic neck pain secondary to cervical degenerative disc disease , spondylosis with facet arthropathy without myelopathy Recommendation of the R TFESI C5-C6 with TPIs of R C2-C7. May need a series of injections, up to 3 with a six-month period, to obtain optimal pain relief. Risks, benefits of procedure discussed and patient verbalized understanding. Denies anticoagulant use. Denies medical history of diabetes. All patient questions answered MAPS reviewed and it was appropriate. I have spent 31 minutes on patient care today. Dr Carey was available by phone for the evaluation of this patient. The time was used to review the medical records including relevant urine studies and Prescription history (MAPs), review of the available imaging, evaluation and examination of the patient, coordination of care with the medical staff and if applicable referring physicians, as well as creation of the medical record Objective - Vital Signs Vital signs: Intake & Output 07/14/21 07/15/21 07/15/21 18:59 06:59 18:59 Weight 67.132 kg PQRS Measure Charge Sheet Mode of Arrival: Ambulatory - Pain Location Neck Non-Pharmacological Interventions: Chiropractic Treatment, Heat, Home Exercise, Ice, Stretching Pharmacological Interventions: Epidural, PRN Medication PQRS Narrative: Blood Pressure 128/83 Pain Intensity [Neck] 6 Scale Used Numeric (1 - 10) Hx Alcohol Use (MH) Yes Home Medications: Ambulatory Orders Rivaroxaban [Xarelto] 20 mg PO HS 02/15/20 Pantoprazole [Protonix] 40 mg PO LONNIE #30 tablet. 02/16/20 Metoprolol Succinate (ER) [Toprol XL] 50 mg PO DAILY #30 tab.er.24h 02/18/20 Flecainide [Tambocor] 100 mg PO Q12HR 09/28/20 Acetaminophen [Tylenol Arthritis] 650 mg PO DAILY PRN 02/09/21 Diclofenac Sodium [Voltaren Arthritis Pain 1% Gel] 2 gm TOPICAL DAILY PRN 02/09/21 Atorvastatin [Lipitor] 40 mg PO DAILY 02/10/21
== END | disposition home or self-care (01) ==
LOC: PNWHC3 08:49
PROVIDERS: ATTEND Specialist
DX: M47.892 Other spondylosis, cervical region (principal); M50.323 Other cervical disc degeneration at C6-C7 level; M54.16 Radiculopathy, lumbar region; M46.92 Unspecified inflammatory spondylopathy, cervical region
CPT/HCPCS: 99211

== ENCOUNTER 2021-08-19 12:01 | Day surgery (SDC) | payer BC ==
[2021-08-17 15:37] VITALS: BMI 23.1
[2021-08-19] MEDS ORDERED: LIDOCAINE 1% (10MG/ML) FOR IV START INTRADERMA PRN (12:16)
[2021-08-19] MEDS ORDERED: LACTATED RINGERS 1,000 ML IV SCH (12:16)
[2021-08-19 12:25] VITALS: RESP 16; TEMP 97
[2021-08-19] MEDS ORDERED: MIDAZOLAM 2 MG/2 ML VIAL ONE (12:27)
[2021-08-19] MEDS ORDERED: fentaNYL (PF) 50 MCG/ML 2 ML AMP ONE (12:27)
[2021-08-19] MEDS ORDERED: DEXAMETHASONE SOD PHOSPHATE 10 MG/ML 1 ML VIAL ONE (12:27)
[2021-08-19] MEDS ORDERED: IOPAMIDOL M200 10 ML VIAL ONE (12:27)
--- NOTE | 2021-08-19 12:43 | P.PCN ---
Date of Procedure: 08/19/21 Procedure(s) Performed: PREOPERATIVE DIAGNOSIS: 1-Cervical radiculopathy . 2-cervical facet arthropathy. 3-cervical degenerative disc disease. 4-myofascial pain syndrome and cervical area POSTOPERATIVE DIAGNOSIS: Same as preoperative diagnoses. PROCEDURE 1. Transforaminal epidural steroid injection under fluoroscopic guidance at right C5-6 level. (Fluoroscopy images stored on file in the radiology Department ) 2. Cervical epidurogram . ANESTHESIA: Local with 1% lidocaine 3 ml , moderate sedation with intravenous Versed 2 mg and fentanyle 100 micrograms. EBL: Minimal PROCEDURE INDICATION: The patient with low back pain and radiculopathy symptoms unresponsive to conservative treatment. PROCEDURE DESCRIPTION / TECHNIQUE: The patient was seen and identified in the preoperative area. Risks, benefits, complications, and alternatives were discussed with the patient. The patient agreed to proceed with the procedure and signed the consent. IV was started, and vital signs were stable. Patient was taken to the OR and time out was completed. The patient was placed in the prone position on procedure table and a pillow was placed under the abdomen to reduce lumbar lordosis. The lumbosacral area was prepped and draped in the usual sterile fashion. Critical pause was taken. Vital signs were closely monitored during the procedure. Conscious sedation was used during the procedure to decrease patient s anxiety. Using oblique fluoroscopy, the chin of the `Jackyy dog at Right C5-6 level was identified, and the skin and deeper tissues just below was localized with 1% lidocaine. Subsequently, a 25-gauge 3.5-inch spinal needle was advanced under a tunneled view fluoroscopic guidance just underneath the chin of the `Jackyy dog at the right C5-6 Under lateral fluoroscopy, the needle was then advanced to the posterior border of the interforaminal space. After negative aspiration of CSF and blood and with no paresthesias, 1 mL Isovue 200 contrast dye was injected excellent epidurogram and outlining of the nerve root Subsequently, 3 mL of block solution containing 20 mg Dexamethasone and 2 mL of 0.9% normal saline PF was injected. Needle was removed . At the end of the procedure, skin was cleansed, and bandages were applied. COMPLICATIONS:none DISPOSITION / PLANS: The patient was placed in a supine position and transferred to the recovery area in a stable condition for observation. There was no evidenc e of lower extremity motor or sensory deficit after the procedure. Patient was discharged from the recovery room after meeting discharge criteria. Home discharge instructions were given to the patient by the staff. The patient was reexamined prior to discharge.
[2021-08-19] MEDS ORDERED: IV FLUID CONTINUATION 1,000 ML IV ONE (12:47)
[2021-08-19 13:10] VITALS: BP 152/72; PULSE 69
--- NOTE | 2021-08-19 13:12 | FL ---
Fluoroscopy History: PAIN 27 SEC FL seconds of fluoroscopic time and 2 films are submitted for pain management.
== END 2021-08-19 13:25 | disposition home or self-care (01) ==
LOC: ORPAIN 12:01
PROVIDERS: ATTEND Specialist
DX: M50.122 Cervical disc disorder at C5-C6 level with radiculopathy (principal); M79.18 Myalgia, other site
CPT/HCPCS: 64479; J2250; J1100; J3010; Q9966; 64483; 99152

== ENCOUNTER → 2021-09-08 | Outpatient (CLI) | payer BC ==
[2021-09-08 10:16] VITALS: BP 154/84; PULSE 69; RESP 18; TEMP 98.6
--- NOTE | 2021-09-08 10:32 | P.PAINPG ---
Subjective Progress Note Date: 09/08/21 Objective - Vital Signs Vital signs: Vital Signs Temp 98.6 F 09/08/21 10:12 Pulse 69 09/08/21 10:12 Resp 18 09/08/21 10:12 BP 154/84 09/08/21 10:12 Pulse Ox 97 09/08/21 10:12 FiO2 PQRS Measure Charge Sheet Mode of Arrival: Ambulatory Comment: A 60 yr old male with a history of severe and chronic neck pain secondary to degenerative disc diseases and spondylosis with facet arthropathy presents today for evaluation status post R TF FILEMON C5-C6 #2 and TPIs. He states he experienced 50% pain relief status post procedure. Pain level is really at 4 out of 10 in intensity, dull, achy in the right aspects of his mid and lower cervical spine with radiation of pain to the right shoulder. Pain is provoked by lateral flexion and rotation. Pain is alleviated with medications, topicals, injections, ice, use of a hot tub, chiropractic treatments monthly, daily home exercise regimen, use of a cervical support brace for traction, repositioning and rest. Interventional pain procedures completed include FILEMON C5-C6 2 Patient is currently on Tylenol arthritis OTC Patient denies any side effects of the medication(s), denies excessive drowsiness or sleepiness, denies suicidal ideation and reports that the current pain medication is helping to control the pain and improve activities of daily living. Patient denies any motor or sensory deficits. Patient denies any fever or night sweats, denies any change in the bowel movements or urination. Physical Examination: -Constitutional: Cooperative. Not in acute distress . -HEENT: Neck is supple. No lymphadenopathy. No thyromegaly. Normal thyroid size. Eyes: No ptosis , no icterus, no photophobia. ENT: No auditory deficits. Normal oropharynx. No Thrush. - Respiratory: Chest clear to auscultations bilaterally. No wheezing. No rhonchi. - Cardiovascular: Regular rate and rhythm. S1 / S2 , no S3 , no S4. - Gastrointestinal: Abdomen soft no tenderness. Bowel sounds positive in all four quadrants. No organomegaly. - Genitourinary: Deferred. - Neurologic: Cranial nerve II to XII intact. No focal neurological deficits. - Psychatric: Alert & oriented x 3. Matching mood & appropriate affect. Judgment and insight intact. - Lymphatic: No Lymphadenopathy. - Musculoskeletal: Cervical spine: Muscle bulk/ tone/ strength in the R paraspinal muscles TTP Vertebral body tenderness to palpation over Facet loading test positive Thoracic spine Muscle bulk / tone/ strength in the bilateral paraspinal muscles normal Vertebral body tender to palpation over Facet loading test positive Lumbar spine: Motor bulk/ tone/ strength lower extremities , thigh and legs : 5/5 Deep tendon reflexes : Normal Knee Jerk. Normal Ankle Jerk . Vertebral body tenderness to palpation over Lumbar Facet Loading Test positive Straight Leg Raise: positive at 30 degrees right side/ left side Gaenslen's Test positive Sacral spine : Severe tenderness over the Sacroiliac joint: right side / left side Range of motion: Flexion of the lumbar spine <60 degrees Range of motion: Extension of the lumbar spine <20 degrees Gaenslen's Test positive Mathew's Test positive Stanley test: positive right side / left side Thigh Thrust Test Sacral Thrust Test Assessment and plan: Chronic low back pain secondary to lumbar degenerative disc disease , lumbar spondylosis with facet arthropathy without myelopathy Recommendation of TPIs of R C2-T4. A need a series of injections for optimal pain relief. Risks, benefits of procedure discussed and pt verbalized understanding. Denies anticoagulant use or medical history of diabetes. Admits to Xarelto use. Denies a medical history of diabetes. Protocol for discontinuation/ continuation of medications zuri procedure discussed. All patient questions answered MAPS reviewed and it was appropriate. I have spent 31 minutes on patient care today. Dr Carey was available by phone for the evaluation of this patient. The time was used to review the medical records including relevant urine studies and Prescription history (MAPs), review of the available imaging, evaluation and examination of the patient, coordination of care with the medical staff and if applicable referring physicians, as well as creation of the medical record - Pain Location Right Neck Non-Pharmacological Interventions: Chiropractic Treatment, Heat, Home Exercise, Ice, Position/Reposition, Stretching Pharmacological Interventions: Block, Epidural, PRN Medication, Topical Medication PQRS Narrative: Blood Pressure 154/84 Pain Intensity [Right Neck] 4 Scale Used Numeric (1 - 10) Hx Alcohol Use (MH) Yes Home Medications: Ambulatory Orders Rivaroxaban [Xarelto] 20 mg PO HS 02/15/20 Pantoprazole [Protonix] 40 mg PO LONNIE #30 tablet. 02/16/20 Metoprolol Succinate (ER) [Toprol XL] 50 mg PO DAILY #30 tab.er.24h 02/18/20 Flecainide [Tambocor] 100 mg PO Q12HR 09/28/20 Acetaminophen [Tylenol Arthritis] 650 mg PO DAILY PRN 02/09/21 Diclofenac Sodium [Voltaren Arthritis Pain 1% Gel] 2 gm TOPICAL DAILY PRN 02/09/21 Atorvastatin [Lipitor] 40 mg PO DAILY 02/10/21 Controlled Substance Measures - Controlled Substance Measures Is patient prescribed a controlled substance at discharge?: No
== END ==
LOC: PNWHC3 09:24
PROVIDERS: ATTEND Specialist
DX: M47.816 Spondylosis without myelopathy or radiculopathy, lumbar region (principal); M51.36 Other intervertebral disc degeneration, lumbar region; G89.29 Other chronic pain
CPT/HCPCS: 99211

== ENCOUNTER 2021-10-12 12:48 | Day surgery (SDC) | payer BC ==
[2021-10-08 15:42] VITALS: BMI 24.3
[~2021-10-12 12:48] MED LIST changes: -LIDOCAINE 1% (10MG/ML) FOR IV START INTRADERMA PRN
[2021-10-12 13:03] VITALS: TEMP 97.3
[2021-10-12] MEDS ORDERED: TRIAMCINOLONE ACETONIDE 40 MG/ML 1 ML VIAL ONE (13:34)
[2021-10-12] MEDS ORDERED: MIDAZOLAM 2 MG/2 ML VIAL ONE (13:34)
[2021-10-12] MEDS ORDERED: ROPIVACAINE 5MG/ML 20ML VIAL ONE (13:34)
[2021-10-12] MEDS ORDERED: fentaNYL (PF) 50 MCG/ML 2 ML AMP ONE (13:34)
--- NOTE | 2021-10-12 13:43 | P.PCN ---
Description of Procedure: Procedure(s) Performed: Trigger point injection in the lower cervical paravertebral musculature on the right side Surgeon: Monico Pickard Pathology: none sent Condition: stable Disposition: PACU Description of Procedure: The patient was seen in preop holding area consent was obtained then she was brought into the procedure room and placed in prone position. The trigger points were marked at the skin level and then I cleaned the skin with ChloraPrep. I used 25-gauge 1-1/2 inch needle to go through the skin and into the muscles of the marked areas. I injected 1 mL of a mixture made up of 10 MLS of ropivacaine 0.5% +40 mg of Kenalog. A total of 10 injections were done in the lower cervical paravertebral musculature ,the trapezius muscle and the infraspinatus muscle on the right side. Patient tolerated procedure well.
[2021-10-12] MEDS ORDERED: IV FLUID CONTINUATION 900 ML IV ONE (13:44)
[2021-10-12 14:01] VITALS: BP 125/84; PULSE 63; RESP 18
== END 2021-10-12 14:17 | disposition home or self-care (01) ==
LOC: ORPAIN 12:48
PROVIDERS: ATTEND Anesthesiology
DX: M54.12 Radiculopathy, cervical region (principal); Z79.01 Long term (current) use of anticoagulants; Z79.899 Other long term (current) drug therapy
CPT/HCPCS: 20553; J2250; J3301; J3010; J2795

== ENCOUNTER → 2021-11-03 | Outpatient (CLI) | payer BC ==
[2021-11-03 10:13] VITALS: BP 151/90; PULSE 80; RESP 18; TEMP 98.1
--- NOTE | 2021-11-03 13:33 | P.PAINPG ---
PQRS Measure Charge Sheet Comment: A 60 yr old male with a history of severe and chronic low back pain secondary to lumbar degenerative disc diseases and lumbar spondylosis with facet arthropathy presents today for evaluation s/p cervicothoracic TPIs. Pt states he experienced 70% pain relief s/p procedure. Pain level is 3/10 in intensity, constant, tight/achy/sore on the R aspect of his cervical & thoracic spine without shooting pain. Pain is provoked by rotation and hyperextension. Pain is alleviated with injections, chiropractic treatments monthly, heat, medications, laying supine, repositioning and rest. He will consider massage therapy at this time. Interventional pain procedures completed include cervicothoracic TPIs x 2 Patient is currently on Tylenol, Voltaren gel Patient denies any side effects of the medication(s), denies excessive drowsiness or sleepiness, denies suicidal ideation and reports that the current pain medication is helping to control the pain and improve activities of daily living. Patient denies any motor or sensory deficits. Patient denies any fever or night sweats, denies any change in the bowel movements or urination. Physical Examination: -Constitutional: Cooperative. Not in acute distress . - Neurologic: Cranial nerve II to XII intact. No focal neurological deficits. - Psychatric: Alert & oriented x 3. Matching mood & appropriate affect. Judgment and insight intact. - Musculoskeletal: Cervical spine: Muscle bulk/ tone/ strength in the bilateral upper extremities normal Vertebral body tenderness to palpation over Spurling test positive Distraction test positive Facet loading test positive Thoracic spine Muscle bulk / tone/ strength in the bilateral paraspinal muscles normal Vertebral body tender to palpation over Facet loading test positive Lumbar spine: Motor bulk/ tone/ strength lower extremities , thigh and legs : 5/5 Deep tendon reflexes : Normal Knee Jerk. Normal Ankle Jerk . 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 He will integrate massage therapy at this point onward and may return to our clinic on an as needed basis. All patient questions answered MAPS reviewed and it was appropriate. I have spent less than 30 minutes on patient care today. Dr Carey was available by phone for the evaluation of this patient. The time was used to review the medical records including relevant urine studies and Prescription history (MAPs), review of the available imaging, evaluation and examination of the patient, coordination of care with the medical staff and if applicable referring physicians, as well as creation of the medical record PQRS Narrative: Hx Alcohol Use (MH) Yes Home Medications: Ambulatory Orders Rivaroxaban [Xarelto] 20 mg PO HS 02/15/20 Pantoprazole [Protonix] 40 mg PO AC-[id number] #30 tablet. 02/16/20 Metoprolol Succinate (ER) [Toprol XL] 50 mg PO DAILY #30 tab.er.24h 02/18/20 Flecainide [Tambocor] 100 mg PO Q12HR 09/28/20 Acetaminophen [Tylenol Arthritis] 650 mg PO DAILY PRN 02/09/21 Diclofenac Sodium [Voltaren Arthritis Pain 1% Gel] 2 gm TOPICAL DAILY PRN 02/09/21 Atorvastatin [Lipitor] 40 mg PO DAILY 02/10/21 Controlled Substance Measures - Controlled Substance Measures Is patient prescribed a controlled substance at discharge?: No
== END ==
LOC: PNWHC3 08:13
PROVIDERS: ATTEND Specialist
DX: M50.33 Other cervical disc degeneration, cervicothoracic region (principal); G89.29 Other chronic pain
CPT/HCPCS: 99211

== ENCOUNTER → 2023-01-06 | Outpatient (CLI) | payer BC ==
--- NOTE | 2023-01-06 16:05 | NM ---
EXAMINATION TYPE: NM bone scan whole body DATE OF EXAM: 01/06/2023 COMPARISON: NONE CLINICAL INDICATION: Male, 62 years old with history of M19.90 UNSPECIFIED OSTEOARTHRITIS, UNSPECIFIE D SIT; TECHNIQUE: Delayed whole-body scanning was performed following the injection of 23.7 mCi Tc 99m MDP. Images acquired 3 hours post injection. FINDINGS: There is a S-shaped scoliotic curvature. Degenerative tracer activity lower lumbar spine and right gr eater than left shoulders. Some urine contamination is noted. Some osteoarthritic change of the base of the left thumb is noted. Some additional degenerative tracer activity posterior elements of the ce rvical spine especially on the right. No suspicious distribution of activity to suggest bony metastas es. IMPRESSION: Scattered degenerative tracer activity as above. No scintigraphic evidence for osseous metastatic dis ease.
== END | disposition home or self-care (01) ==
LOC: RADNMMAIN 10:16
PROVIDERS: ATTEND Family Medicine
DX: M19.90 Unspecified osteoarthritis, unspecified site (principal)
CPT/HCPCS: 78306; A9503